=== PATIENT | male | born 1935 | race Caucasian/White ===

== ENCOUNTER 2024-04-02 18:12 | Emergency (ER) | payer MEDICARE ==
--- NOTE | 2024-04-02 18:31 | ERPHSYRPT ---
- History of Present Illness Time Seen by Provider: 04/02/24 18:20 Source: patient Exam Limitations: no limitations Physician History: 88-year-old male presents to our ED with family for evaluation of suspected stroke. Patient reports that he was working with a wrench this morning at 11 AM. 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 Patient then felt his left lower extremity to be unstable. Patient told his daughter. She came to his home and found that he was drooling from the left side of his mouth. No trauma no fever. No history of strokes. Patient on aspirin otherwise no blood thinners. Symptoms are mild to moderate in intensity. No specific worsening or improving factors. Patient otherwise well. They voiced no other complaints or concerns at this time. Portions of this note were created with voice recognition technology. There may be grammatical, spelling, punctuation or sound alike errors Timing/Duration: today Severity: moderate Modifying Factors: Improves With: nothing Associated Symptoms: denies symptoms Allergies/Adverse Reactions: No Known Drug Allergies Allergy (Verified 04/02/24 18:20) Home Medications: Aspirin EC 81 mg [Ecotrin 81 mg] 81 mg PO DAILY@0700 06/27/19 [History] Metoprolol Tartrate 25 mg PO BID@0700,1900 06/27/19 [History] Pravastatin Sodium 40 mg PO DAILY@189906/27/19 [History] Levothyroxine Sodium 125 mcg PO DAILY 04/02/24 [History] Lisinopril 5 mg [Zestril 5 MG] 15 mg PO DAILY 04/02/24 [History] Hx Tetanus, Diphtheria Vaccination/Date Given: Yes Hx Influenza Vaccination/Date Given: Yes (2013) Hx Pneumococcal Vaccination/Date Given: No - Review of Systems Constitutional: No Symptoms, No Fever, No Chills Eyes: No Symptoms Ears, Nose, & Throat: No Symptoms Respiratory: No Symptoms, No Cough, No Dyspnea Cardiac: No Symptoms, No Chest Pain, No Edema, No Syncope Abdominal/Gastrointestinal: No Symptoms, No Abdominal Pain, No Nausea, No Vomiting, No Diarrhea Genitourinary Symptoms: No Symptoms, No Dysuria Musculoskeletal: No Symptoms, No Back Pain, No Neck Pain Skin: No Symptoms, No Rash Neurological: No Symptoms, No Dizziness, No Focal Weakness, No Sensory Changes Psychological: No Symptoms Endocrine: No Symptoms Hematologic/Lymphatic: No Symptoms Immunological/Allergic: No Symptoms All Other Systems: Reviewed and Negative - Past Medical History Pertinent Past Medical History: Yes Neurological History: No Pertinent History ENT History: No Pertinent History Cardiac History: Hypertension Endocrine Medical History: Thyroid Cancer - Past Surgical History Past Surgical History: Yes Cardiac: CABG Gastrointestinal: Hernia Repair - Social History Smoking Status: Never smoker Exposure to second hand smoke: No Drug Use: none Patient Lives Alone: No - Nursing Vital Signs Nursing Vital Signs: Initial Vital Signs Temperature 97.4 F 04/02/24 18:15 Pulse Rate 76 04/02/24 18:15 Respiratory Rate 16 04/02/24 18:15 Blood Pressure 183/97 04/02/24 18:15 O2 Sat by Pulse Oximetry 96 04/02/24 18:15 Pain Scale Pain Intensity 0 - Physical Exam General Appearance: no apparent distress, alert Eye Exam: PERRL/EOMI, eyes nml inspection Ears, Nose, Throat Exam: normal ENT inspection, pharynx normal, moist mucous membranes Neck Exam: normal inspection, non-tender, supple, full range of motion Respiratory Exam: normal breath sounds, lungs clear, airway intact, No respiratory distress Cardiovascular Exam: regular rate/rhythm, normal heart sounds, normal peripheral pulses Gastrointestinal/Abdomen Exam: soft, normal bowel sounds, No tenderness, No mass Back Exam: normal inspection, normal range of motion, No CVA tenderness, No vertebral tenderness Extremity Exam: normal inspection, pelvis stable Neurologic Exam: alert, oriented x 3, cooperative, normal mood/affect, sensation nml, No motor deficits Skin Exam: normal color, warm, dry, No rash Lymphatic Exam: No adenopathy SpO2 Interpretation: normal SpO2: 96 O2 Delivery: Room Air - Course Nursing assessment & vital signs reviewed: Yes EKG Interpreted by Me: RATE (80), Sinus Rhythm, NORMAL AXIS, NORMAL INTERVALS, Right Bundle Branch Block - CT Exams Head CT Interpretation: Tele-radiologist Report (Acute parenchymal bleed at the right insula measuring 1.9 x 1.5 x 2.1 cm left maxillary sinus disease) Ordered Tests: Active Orders 24 hr Category Date 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 04/02/24 18:38 Active EKG-ER Only STAT Care 04/02/24 18:37 Active IV Insertion STAT Care 04/02/24 18:37 Active IV Insertion-2nd Peripheral STAT Care 04/02/24 18:58 Active Pulse Oximetry (ED) STAT Care 04/02/24 18:37 Active HEAD WITHOUT CONTRAST [CT] Stat Exams 04/02/24 18:29 Taken CBC W DIFF Stat Lab 04/02/24 18:35 Completed CMP Stat Lab 04/02/24 18:35 Completed TROPONIN Q4H Lab 04/02/24 18:35 Completed TROPONIN Q4H Lab 04/02/24 22:45 Ordered TROPONIN Q4H Lab 04/03/24 02:45 Ordered Medication Summary Generic Name Dose Route Start Last Admin Trade Name Freq PRN Reason Stop Dose Admin Nicardipine HCl 25 mg/ Sodium 250 mls @ 50 mls/hr 04/02/24 19:18 04/02/24 20:47 Chloride IV 05/02/24 19:17 75 ml/hr .Q5H PRN 75 mls/hr HYPERTENSION Titration Protocol Discontinued Medications Generic Name Dose Route Start Last Admin Trade Name Freq PRN Reason Stop Dose Admin Sodium Chloride Confirm 04/02/24 19:15 Sodium Chloride 0.9% 250 Ml Administered 04/02/24 19:16 Dose 250 mls @ ud IV .STK-MED ONE Nicardipine HCl Confirm 04/02/24 19:14 Nicardipine Hcl 25mg/10ml Vial Administered 04/02/24 19:15 Dose 25 mg IV .STK-MED ONE Lab/Rad Data: Laboratory Result Diagrams 04/02/24 18:35 04/02/24 18:35 Laboratory Results 04/02/24 04/02/24 04/02/24 Range/Units 18:35 18:35 18:35 WBC 11.2 H (4.23-9.07) x10^3/uL RBC 3.66 L (4.63-6.08) x10^6/uL Hgb 11.4 L (13.7-17.5) g/dL Hct 34.3 L (40.1-51.0) % MCV 93.7 H (79.0-92.2) fL MCH 31.1 (25.7-32.2) pg MCHC 33.2 (32.3-36.5) g/dL RDW 13.5 (11.6-14.4) % Plt Count 158 L (163-337) x10^3/uL MPV 10.6 (9.4-12.4) fL Gran % 85.2 H (34.0-67.9) % Immature Gran % (Auto) 0.4 (0.001-0.429) % Nucleat RBC Rel Count 0.0 (0.00-0.2) % Eos # (Auto) 0.01 L (0.04-0.54) x10^3/uL Immature Gran # (Auto) 0.05 H (0.001-0.031) x10^3u/L Absolute Lymphs (auto) 0.95 L (1.32-3.57) x10^3/uL Absolute Monos (auto) 0.60 (0.30-0.82) x10^3/uL Absolute Nucleated RBC 0.00 (0.00-0.012) x10^3u/L Lymphocytes % 8.5 L (21.8-53.1) % Monocytes % 5.4 (5.3-12.2) % Eosinophils % 0.1 L (0.8-7.0) % Basophils % 0.4 (0.2-1.2) % Absolute Granulocytes 9.52 H (1.78-5.38) x10^3/uL Basophils # 0.04 (0.01-0.08) x10^3/uL Sodium 139 (135-145) mmol/L Potassium 4.3 (3.5-5.1) mmol/L Chloride 105 (98-107) mmol/L Carbon Dioxide 24 (22-30) mmol/L Anion Gap 14.7 (5-15) MEQ/L BUN 27 H (9-20) mg/dL Creatinine 1.57 H (0.66-1.25) mg/dL Estimated GFR 42.4 ML/MIN Glucose 129 H (74-106) mg/dL Calcium 9.8 (8.4-10.2) mg/dL Total Bilirubin 0.50 (0.2-1.3) mg/dL AST 28 (17-59) U/L ALT 24 (0-50) U/L Alkaline Phosphatase 88 (38-126) U/L Troponin I < 0.012 (0.000-0.033) ng/mL Serum Total Protein 7.4 (6.3-8.2) g/dL Albumin 4.5 (3.5-5.0) g/dL - Progress Progress: improved Progress Note: Case discussed with Dr. Bañuelos neurosurgery at 1936. 88-year-old male presents to our ED for evaluation of left upper and lower extremity weakness that appears to have improved. Physical exam essentially nonremarkable. Patient conversant well-appearing and in no distress. CT head reveals a intracerebral hemorrhage particularly at the right insula. Bleed measures 1.9 x 1.5 x 2.1 cm. Patient reassessed he is stable. Patient is conversant well-appearing and in no acute distress. Laboratory workup shows ch ronic renal insufficiency. Patient and family updated on the findings. They requested transfer to [facility]. We contacted [facility]. They do not have neurosurgery available. Family agreeable to transfer to ED [facility]. Transfer accepted by neurosurgery. Patient currently on a nicardipine drip. We are titrating the drip according to protocol. Target blood pressure is 130-140 systolic. We are currently arranging transport via rotary wing aircraft. Family aware and agree. Patient resting comfortably. He voices no other complaints or concerns at this time. Portions of this note were created with voice recognition technology. There may be grammatical, spelling, punctuation or sound alike errors Complexity of problem addressed is moderate acute complicated. Critical care time is greater than 194 minutes. Patient has an intra parenchymal brain bleed. Patient currently on a nicardipine drip to decrease blood pressure to goal blood pressure. We are currently titrating per protocol. Patient is being monitored closely. Immediate intervention indicated to prevent further deterioration. Complexity of data reviewed and analyzed is extensive. Test ordered chest reviewed results analyzed and correlated clinically with history and physical exam. Risk of complication and or risk of morbidity/mortality of patient management is high. Patient requires transfer to higher level of care. Vital stable. Time spent to transfer patient is approximately 20 minutes. Plan of care established for shared decision making. No social determinants of health present to impede follow-up. Portions of this note were created with voice recognition technology. There may be grammatical, spelling, punctuation or sound alike errors 04/02/24 19:43 04/02/24 19:53 Counseled pt/family regarding: lab results, diagnosis, rad results - Departure Departure Disposition: Transfer Clinical Impression: Intracerebral hemorrhage, Chronic renal insufficiency, Left maxillary sinus disease Condition: Stable Critical Care Time: Yes Critical Care Time(excluding separately billable procedures): Critical > 194 mins Referrals: TONY WELSH MD [Primary Care Provider] - Follow up/PCP as directed
[2024-04-02 18:32] VITALS: TEMP 97.4
[2024-04-02 18:42] LABS: Absolute Neutrophil Ct (ANC) 9.52 x10^3/uL (1.78-5.38); BASOPHIL % 0.4 % (0.2-1.2); Basophil (Absolute #) 0.04 x10^3/uL (0.01-0.08); Eosinophil % 0.1 % (0.8-7.0); Eosinophil (Absolute #) 0.01 x10^3/uL (0.04-0.54); Hematocrit 34.3 % (40.1-51.0); Hemoglobin 11.4 g/dL (13.7-17.5); IMMATURE GRAN # 0.05 x10^3u/L (0.001-0.031); IMMATURE GRAN % 0.4 % (0.001-0.429); Lymphocyte (Absolute #) 0.95 x10^3/uL (1.32-3.57); Lymphocytes % 8.5 % (21.8-53.1); Mean Cell Volume 93.7 fL (79.0-92.2); Mean Corpuscular Hemoglobin 31.1 pg (25.7-32.2); Mean Corpuscular Hgb Concent. 33.2 g/dL (32.3-36.5); Mean Platelet Volume 10.6 fL (9.4-12.4); Monocytes % 5.4 % (5.3-12.2); Neutrophil % 85.2 % (34.0-67.9); Platelet Count 158 x10^3/uL (163-337); Red Blood Count 3.66 x10^6/uL (4.63-6.08); Red Cell Distribution Width 13.5 % (11.6-14.4); White Blood Count 11.2 x10^3/uL (4.23-9.07)
[2024-04-02 18:58] LABS: ALBUMIN 4.5 g/dL (3.5-5.0); ANION GAP 14.7 MEQ/L (5-15); BILIRUBIN,TOTAL 0.5 mg/dL (0.2-1.3); Calcium 9.8 mg/dL (8.4-10.2); Creatinine 1 1.57 mg/dL (0.66-1.25); EST GLOMERULAR FILTRATION RATE 42.4 ML/MIN; Potassium 4.3 mmol/L (3.5-5.1); Total Protein 7.4 g/dL (6.3-8.2)
[2024-04-02] MEDS ORDERED: CARDENE IV ONE (19:14)
[2024-04-02] MEDS ORDERED: Sodium Chloride 0.9% 250 ML 250 ML IV ONE (19:15)
[2024-04-02] MEDS: CARDENE*** 25 MG in Sodium Chloride 0.9% 250 ML 240 ML IV PRN (19:23)
[2024-04-02 21:07] VITALS: O2SAT 96
[2024-04-02 21:37] VITALS: BP 136/73; PULSE 80; RESP 16
--- NOTE | 2024-04-03 08:37 | XRAY ---
Indication: Left leg weakness. Multiple contiguous axial images obtained through the head without contrast. Comparison: None Age-appropriate global atrophy and mild periventricular degenerative micro-ischemia bilaterally. Right insula demonstrates 1.9 x 1.5 x 2.1 cm focus of acute parenchymal hemorrhage. No mass effect or midline shifting. Fourth ventricle is midline without hydrocephalus. Bony calvarium intact. Near complete opacification left maxillary sinus with mild mucosal thickening left frontal/left ethmoid sinuses. Mastoid air cells are clear. Impression: 1. Small focus acute parenchymal hemorrhage right insula without mass effect/midline shifting. 2. Atrophy and degenerative micro-ischemia within normal limits. 3. Incidental paranasal sinus disease. Comment: Telephone report was given to ordering clinician Dr. Parks at 1912 hrs. on April 02, 2024.
== END 2024-04-02 21:30 | disposition short-term general hospital (02) ==
LOC: ED 18:12
DX: I61.9 Nontraumatic intracerebral hemorrhage, unspecified (principal); I12.9 Hypertensive chronic kidney disease with stage 1 through stage 4 chronic kidney disease, or unspecified chronic kidney disease; N18.9 Chronic kidney disease, unspecified; J32.0 Chronic maxillary sinusitis; Z79.899 Other long term (current) drug therapy
CPT/HCPCS: 36415; 70450; 80053; 84484; 85025; 93005; 93041; 94760; 96365; 96366; 99285; 99291; 99292

== ENCOUNTER 2024-04-09 07:43 | Inpatient (IN) | payer MEDICARE ==
[2024-04-09] MEDS: Sodium Chloride 0.9% 1000 ML 1,000 ML IV SCH (08:10)
[2024-04-09 08:21] LABS: Absolute Neutrophil Ct (ANC) 9.72 x10^3/uL (1.78-5.38); BASOPHIL % 0.3 % (0.2-1.2); Basophil (Absolute #) 0.03 x10^3/uL (0.01-0.08); Eosinophil % 0.4 % (0.8-7.0); Eosinophil (Absolute #) 0.04 x10^3/uL (0.04-0.54); Hematocrit 32.7 % (40.1-51.0); Hemoglobin 10.7 g/dL (13.7-17.5); IMMATURE GRAN # 0.03 x10^3u/L (0.001-0.031); IMMATURE GRAN % 0.3 % (0.001-0.429); Lymphocyte (Absolute #) 0.28 x10^3/uL (1.32-3.57); Lymphocytes % 2.8 % (21.8-53.1); Mean Cell Volume 95.9 fL (79.0-92.2); Mean Corpuscular Hemoglobin 31.4 pg (25.7-32.2); Mean Corpuscular Hgb Concent. 32.7 g/dL (32.3-36.5); Mean Platelet Volume 10.3 fL (9.4-12.4); Monocyte (Absolute #) 0.08 x10^3/uL (0.30-0.82); Monocytes % 0.8 % (5.3-12.2); Neutrophil % 95.4 % (34.0-67.9); Platelet Count 135 x10^3/uL (163-337); Red Blood Count 3.41 x10^6/uL (4.63-6.08); Red Cell Distribution Width 13.4 % (11.6-14.4); White Blood Count 10.2 x10^3/uL (4.23-9.07)
[2024-04-09] MEDS: OFIRMEV IV ONE (08:23)
--- NOTE | 2024-04-09 08:27 | XRAY ---
CLINICAL HISTORY: shaking COMPARISON: 04/02/24 TECHNIQUE: Axial non-contrast CT scan of the brain was performed from the skull base to the high parietal region. One of the following dose reduction techniques were utilized for this exam: Automated exposure control, adjustment of the mA and/or kV according to patient size, use of iterative reconstruction. FINDINGS: Brain Parenchyma: There is redemonstration of right insular region hemorrhage showing no interval change in size and morphology. It is measuring 2.0 x 1.4 cm.Mild adjacent perilesional edema seen. No significant midline shift was noted Age-proportionate global atrophy and microvascular ischemic changes are noted Normal attenuation of the cerebral hemispheres, cerebellum, and brainstem. Ventricular System: No evidence of hydrocephalus or ventricular enlargement. Subarachnoid Spaces: Normal sulci and cisterns. No evidence of subarachnoid hemorrhage or extra-axial fluid collections. Cerebellum and Brainstem: Normal size and signal. No masses, lesions, or areas of abnormal signal. Orbits: Normal appearance of the globes, optic nerves, and extraocular muscles. No evidence of orbital masses or abnormal signal. Sinuses: Redemonstration of complete opacification of the left maxillary sinus with internal hyperdensity Mild mucosal thickening also noted in left frontal and right maxillary and bilateral ethmoid sinuses Mastoid Air Cells: Clear mastoid air cells. No evidence of mastoiditis. Skull and Meninges: Normal skull morphology. IMPRESSION: Redemonstration of right insular region hemorrhage showing no interval change in size and morphology. Mild adjacent perilesional edema seen without midline shift. Follow-up is advised. No interval change since prior study, Electronically Signed by: Leighton Love MD. (04/09/2024 08:23:24 EST)
--- NOTE | 2024-04-09 08:49 | ERPHSYRPT ---
- History of Present Illness Time Seen by Provider: 04/09/24 08:44 Source: patient Exam Limitations: no limitations Patient Subjective Stated Complaint: pt co shakes today and generally not feeling well, pt was recently dx with head bleed and spent 5 days in hospital at [facility] Triage Nursing Assessment: pt arrived per ems, alert and oriented, closes eyses often. skin hot to touch, dry and pink. no cough, chest clear, abd soft, nontender, has yellow bruising to upper arms and shoulders, moves all ext well, no edema noted Physician History: 88-year-old male presents to our ED via EMS for evaluation of subjective fever, rigor generalized weakness. Patient was in our ED approximately 5 days ago. Patient was diagnosed with a right insular hemorrhagic stroke. Patient was transferred to [facility] for further evaluation and treatment. Patient was discharged yesterday. Patient reports that his symptoms started several days ago. Symptoms have gotten worse. Per family patient was monitored. No invasive procedures were done. However patient did have a Whiting catheter in place. Patient denies pain. No chest pain or shortness of breath. No nausea vomiting or diaphoresis. No hematuria or dysuria. Patient observed lying in bed. Eyes closed. Patient has no active complaints. Portions of this note were created with voice recognition technology. There may be grammatical, spelling, punctuation or sound alike errors Timing/Duration: day(s) (2 to 3 days ago) Severity: moderate Modifying Factors: Improves With: nothing Associated Symptoms: denies symptoms Allergies/Adverse Reactions: No Known Drug Allergies Allergy (Verified 04/09/24 07:52) Home Medications: Aspirin EC 81 mg [Ecotrin 81 mg] 81 mg PO DAILY@0700 06/27/19 [History] Metoprolol Tartrate 25 mg PO BID@0700,1900 06/27/19 [History] Pravastatin Sodium 40 mg PO DAILY@1900 06/27/19 [History] Levothyroxine Sodium 125 mcg PO DAILY 04/02/24 [History] Lisinopril 5 mg [Zestril 5 MG] 15 mg PO DAILY 04/02/24 [History] Hx Tetanus, Diphtheria Vaccination/Date Given: Yes Hx Influenza Vaccination/Date Given: Yes (2013) Hx Pneumococcal Vaccination/Date Given: No Immunizations Up to Date: Yes Travel Risk - International Travel Have you traveled outside of the country in past 3 weeks: No - Emerging Infectious Disease Are you exhibiting symptoms associated with any current EIDs: No - Review of Systems Constitutional: No Symptoms, No Fever, No Chills Eyes: No Symptoms Ears, Nose, & Throat: No Symptoms Respiratory: No Symptoms, No Cough, No Dyspnea Cardiac: No Symptoms, No Chest Pain, No Edema, No Syncope Abdominal/Gastrointestinal: No Symptoms, No Abdominal Pain, No Nausea, No Vomiting, No Diarrhea Genitourinary Symptoms: No Symptoms, No Dysuria Musculoskeletal: No Symptoms, No Back Pain, No Neck Pain Skin: No Symptoms, No Rash Neurological: No Symptoms, No Dizziness, No Focal Weakness, No Sensory Changes Psychological: No Symptoms Endocrine: No Symptoms Hematologic/Lymphatic: No Symptoms Immunological/Allergic: No Symptoms All Other Systems: Reviewed and Negative - Past Medical History Pertinent Past Medical History: Yes Neurological History: No Pertinent History ENT History: No Pertinent History Cardiac History: Hypertension Endocrine Medical History: Thyroid Cancer Other Medical History: head bleed 03/2024 - Past Surgical History Past Surgical History: Yes Cardiac: CABG Gastrointestinal: Hernia Repair - Social History Smoking Status: Never smoker Exposure to second hand smoke: No Drug Use: none Patient Lives Alone: No - Social Determinants of Health Will the patient participate in the screening: Declined to provide - Nursing Vital Signs Nursing Vital Signs: Initial Vital Signs O2 Sat by Pulse Oximetry 87 L 04/09/24 07:55 Pain Scale Pain Intensity 3 - Physical Exam General Appearance: no apparent distress, alert Eye Exam: PERRL/EOMI, eyes nml inspection Ears, Nose, Throat Exam: normal ENT inspection, TMs normal, pharynx normal, mo ist mucous membranes Neck Exam: normal inspection, non-tender, supple, full range of motion Respiratory Exam: normal breath sounds, lungs clear, No respiratory distress Cardiovascular Exam: regular rate/rhythm, normal heart sounds, normal peripheral pulses Gastrointestinal/Abdomen Exam: soft, normal bowel sounds, No tenderness, No mass Back Exam: normal inspection, normal range of motion, No CVA tenderness, No vertebral tenderness Extremity Exam: normal inspection, normal range of motion, pelvis stable Neurologic Exam: alert, oriented x 3, cooperative, normal mood/affect, sensation nml, No motor deficits Skin Exam: normal color, warm, dry, No rash Lymphatic Exam: No adenopathy SpO2 Interpretation: normal SpO2: 88 O2 Delivery: Room Air - Course Nursing assessment & vital signs reviewed: Yes EKG Interpreted by Me: RATE (95), Sinus Rhythm, LAFB, NORMAL INTERVALS, NORMAL QRS (Nonspecific T wave abnormalities) - Radiology Exams Chest X-ray Interpretation: Teleradiologist Report (No acute findings) - CT Exams Head CT Interpretation: Tele-radiologist Report (No interval change of insular bleed) Ordered Tests: Active Orders 24 hr Category Date Time Status Ui Architect STAT Care 04/09/24 07:49 Active EKG-ER Only STAT Care 04/09/24 07:47 Active IV Insertion STAT Care 04/09/24 07:47 Active Pulse Oximetry (ED) STAT Care 04/09/24 07:47 Active CHEST 1 VIEW (PORTABLE) Stat Exams 04/09/24 09:30 Completed HEAD WITHOUT CONTRAST [CT] Stat Exams 04/09/24 07:45 Completed BLOOD CULTURE Stat Lab 04/09/24 08:16 Received CBC W DIFF Stat Lab 04/09/24 08:09 Completed CMP Stat Lab 04/09/24 08:09 Completed CULTURE,URINE Stat Lab 04/09/24 09:19 Received Lactic Acid Stat Lab 04/09/24 08:15 Completed MAGNESIUM Stat Lab 04/09/24 08:09 Completed NT PRO BNPII Stat Lab 04/09/24 08:09 Completed TSH, 3RD Generation Stat Lab 04/09/24 08:09 Completed UA W/RFX UR CULTURE Stat Lab 04/09/24 09:19 Completed Transfer Order Routine Transfer 04/09/24 Ordered Medication Summary Generic Name Dose Route Start Last Admin Trade Name Freq PRN Reason Stop Dose Admin Sodium Chloride 1,000 mls @ 100 mls/hr 04/09/24 08:15 04/09/24 08:10 Sodium Chloride 0.9% 1000 Ml IV 05/09/24 08:14 100 mls/hr .Q10H JASON Administration Levofloxacin/Dextrose 500 mg in 100 mls @ 100 mls/hr 04/09/24 10:22 04/09/24 10:25 Levofloxacin 500mg/100ml D5w IV 04/09/24 11:21 100 mls/hr STAT STA 100 mls/hr Administration Discontinued Medications Generic Name Dose Route Start Last Admin Trade Name Freq PRN Reason Stop Dose Admin Acetaminophen 1,000 mg 04/09/24 08:30 04/09/24 08:23 Acetaminophen 1,000 Mg/100 Ml Ml IV 04/09/24 08:31 1,000 mg ONCE ONE Administration Levofloxacin/Dextrose Confirm 04/09/24 10:24 Levofloxacin 500mg/100ml D5w Administered 04/09/24 10:25 Dose 500 mg in 100 mls @ ud IV .STK-MED ONE Lab/Rad Data: Laboratory Result Diagrams 04/09/24 08:09 04/09/24 08:09 Laboratory Results 04/09/24 04/09/24 04/09/24 Range/Units 09:19 08:33 08:15 WBC (4.23-9.07) x10^3/uL RBC (4.63-6.08) x10^6/uL Hgb (13.7-17.5) g/dL Hct (40.1-51.0) % MCV (79.0-92.2) fL MCH (25.7-32.2) pg MCHC (32.3-36.5) g/dL RDW (11.6-14.4) % Plt Count (163-337) x10^3/uL MPV (9.4-12.4) fL Gran % (34.0-67.9) % Immature Gran % (Auto) (0.001-0.429) % Nucleat RBC Rel Count (0.00-0.2) % Eos # (Auto) (0.04-0.54) x10^3/uL Immature Gran # (Auto) (0.001-0.031) x10^3u/L Absolute Lymphs (auto) (1.32-3.57) x10^3/uL Absolute Monos (auto) (0.30-0.82) x10^3/uL Absolute Nucleated RBC (0.00-0.012) x10^3u/L Lymphocytes % (21.8-53.1) % Monocytes % (5.3-12.2) % Eosinophils % (0.8-7.0) % Basophils % (0.2-1.2) % Absolute Granulocytes (1.78-5.38) x10^3/uL Basophils # (0.01-0.08) x10^3/uL Sodium (135-145) mmol/L Potassium (3.5-5.1) mmol/L Chloride (98-107) mmol/L Carbon Dioxide (22-30) mmol/L Anion Gap (5-15) MEQ/L BUN (9-20) mg/dL Creatinine (0.66-1.25) mg/dL Estimated GFR ML/MIN Glucose (74-106) mg/dL Lactic Acid 1.5 (0.4-2.0) Calcium (8.4-10.2) mg/dL Magnesium (1.6-2.3) mg/dL Total Bilirubin (0.2-1.3) mg/dL AST (17-59) U/L ALT (0-50) U/L Alkaline Phosphatase (38-126) U/L NT-Pro-B Natriuret Pep (<300) pg/mL Serum Total Protein (6.3-8.2) g/dL Albumin (3.5-5.0) g/dL TSH 3rd Generation (0.470-4.680) mIU/L Urine Color Annabella A (Yellow) Urine Appearance Cloudy A (Clear) Urine pH 6.0 (4.6-8.0) Ur Specific Lawrence 1.015 (1.005-1.030) Urine Protein 100 A (Negative) Urine Glucose (UA) Negative (Negative) mg/dL Urine Ketones Negative (Negative) Urine Blood Large A (Negative) Urine Nitrite Negative (Negative) Urine Bilirubin Negative (Negative) Urine Urobilinogen 1.0 A (0.2) mg/dL Ur Leukocyte Esterase Small A (Negative) U Hyaline Cast (Auto) NONE SEEN (0-2) /LPF Urine Microscopic RBC >100 A (0-5) /HPF Urine Microscopic WBC 11-20 A (0-5) /HPF Ur Epithelial Cells None Seen (None Seen) /HPF Urine Bacteria Moderate A (None Seen) /HPF Urine Culture Reflexed ORDERED SEPARATELY (NO) Influenza Type A Ag NEGATIVE (NEGATIVE) Influenza Type B Ag NEGATIVE (NEGATIVE) RSV (PCR) NEGATIVE (NEGATIVE) SARS-CoV-2 (PCR) NEGATIVE (NEGATIVE) 04/09/24 04/09/24 Range/Units 08:09 08:09 WBC 10.2 H (4.23-9.07) x10^3/uL RBC 3.41 L (4.63-6.08) x10^6/uL Hgb 10.7 L (13.7-17.5) g/dL Hct 32.7 L (40.1-51.0) % MCV 95.9 H (79.0-92.2) fL MCH 31.4 (25.7-32.2) pg MCHC 32.7 (32.3-36.5) g/dL RDW 13.4 (11.6-14.4) % Plt Count 135 L (163-337) x10^3/uL MPV 10.3 (9.4-12.4) fL Gran % 95.4 H (34.0-67.9) % Immature Gran % (Auto) 0.3 (0.001-0.429) % Nucleat RBC Rel Count 0.0 (0.00-0.2) % Eos # (Auto) 0.04 (0.04-0.54) x10^3/uL Immature Gran # (Auto) 0.03 (0.001-0.031) x10^3u/L Absolute Lymphs (auto) 0.28 L (1.32-3.57) x10^3/uL Absolute Monos (auto) 0.08 L (0.30-0.82) x10^3/uL Absolute Nucleated RBC 0.00 (0.00-0.012) x10^3u/L Lymphocytes % 2.8 L (21.8-53.1) % Monocytes % 0.8 L (5.3-12.2) % Eosinophils % 0.4 L (0.8-7.0) % Basophils % 0.3 (0.2-1.2) % Absolute Granulocytes 9.72 H (1.78-5.38) x10^3/uL Basophils # 0.03 (0.01-0.08) x10^3/uL Sodium 140 (135-145) mmol/L Potassium 4.1 (3.5-5.1) mmol/L Chloride 109 H (98-107) mmol/L Carbon Dioxide 25 (22-30) mmol/L Anion Gap 10.7 (5-15) MEQ/L BUN 42 H (9-20) mg/dL Creatinine 1.37 H (0.66-1.25) mg/dL Estimated GFR 49.9 ML/MIN Glucose 111 H (74-106) mg/dL Lactic Acid (0.4-2.0) Calcium 9.6 (8.4-10.2) mg/dL Magnesium 1.5 L (1.6-2.3) mg/dL Total Bilirubin 0.80 (0.2-1.3) mg/dL AST 29 (17-59) U/L ALT 27 (0-50) U/L Alkaline Phosphatase 65 (38-126) U/L NT-Pro-B Natriuret Pep 470 (<300) pg/mL Serum Total Protein 6.8 (6.3-8.2) g/dL Albumin 3.9 (3.5-5.0) g/dL TSH 3rd Generation 1.498 (0.470-4.680) mIU/L Urine Color (Yellow) Urine Appearance (Clear) Urine pH (4.6-8.0) Ur Specific Lawrence (1.005-1.030) Urine Protein (Negative) Urine Glucose (UA) (Negative) mg/dL Urine Ketones (Negative) Urine Blood (Negative) Urine Nitrite (Negative) Urine Bilirubin (Negative) Urine Urobilinogen (0.2) mg/dL Ur Leukocyte Esterase (Negative) U Hyaline Cast (Auto) (0-2) /LPF Urine Microscopic RBC (0-5) /HPF Urine Microscopic WBC (0-5) /HPF Ur Epithelial Cells (None Seen) /HPF Urine Bacteria (None Seen) /HPF Urine Culture Reflexed (NO) Influenza Type A Ag (NEGATIVE) Influenza Type B Ag (NEGATIVE) RSV (PCR) (NEGATIVE) SARS-CoV-2 (PCR) (NEGATIVE) - Progress Progress: improved Progress Note: 88-year-old male presents to our ED for evaluation of subjective fever and rigor. Patient febrile 104 upon arrival. Patient observed to have urinary tract infection. No obvious pneumonia on chest x-ray. Laboratory workup essentially nonremarkable. Chronic renal insufficiency observed. Antibiotics initiated. Patient has a known right insular hemorrhagic stroke diagnosed approximately 1 week ago. Patient is stable from this regard as per CT scan completed today. Plan of care discussed with patient. He agrees to admission to [facility] for further evaluation and treatment. Portions of this note were created with voice recognition technology. There may be grammatical, spelling, punctuation or sound alike errors Complexity of problem addressed is moderate acute complicated no critical care time complex of data reviewed and analyzed is extensive. Test ordered chest reviewed results analyzed and correlated clinically with history and physical exam. Management discussed with hospitalist who excepts admission to observation. Risk of complication and or risk of morbidity/mortality of patient management is high. Patient requires hospitalization for further evaluation and treatment. Vital stable. Time spent to admit patient approximately 15 minutes. Plan of care established for shared decision making. No social determinants of health present to impede follow-up. Portions of this note were created with voice recognition technology. There may be grammatical, spelling, punctuation or sound alike errors 04/09/24 10:45 Counseled pt/family regarding: lab results, diagnosis, rad results - Departure Departure Disposition: Observation Clinical Impression: Hypoxia, Fever, UTI (urinary tract infection) Condition: Stable Critical Care Time: No Referrals: TONY WELSH MD [Primary Care Provider] - Follow up/PCP as directed
[2024-04-09 09:06] LABS: ALBUMIN 3.9 g/dL (3.5-5.0); ANION GAP 10.7 MEQ/L (5-15); BILIRUBIN,TOTAL 0.8 mg/dL (0.2-1.3); Calcium 9.6 mg/dL (8.4-10.2); Creatinine 1 1.37 mg/dL (0.66-1.25); EST GLOMERULAR FILTRATION RATE 49.9 ML/MIN; MAGNESIUM 1.5 mg/dL (1.6-2.3); Potassium 4.1 mmol/L (3.5-5.1); TSH, 3RD Generation 1.498 mIU/L (0.470-4.680); Total Protein 6.8 g/dL (6.3-8.2)
[2024-04-09 09:35] LABS: Appearance Cloudy (Clear); Bacteria Moderate /HPF (None Seen); Bilirubin Negative (Negative); Blood Large (Negative); Epithelial Cells None Seen /HPF (None Seen); Glucose, Urine Negative (Negative); Hyaline Casts NONE SEEN /LPF (0-2); Ketones Negative (Negative); Leukocyte Esterase Small (Negative); Nitrite Negative (Negative); Protein,Urine Dip 100 (Negative); RBC >100 /HPF (0-5); Specific Gravity 1.015 (1.005-1.030)
[2024-04-09 10:05] LABS: INFLUENZA A NEGATIVE (NEGATIVE); INFLUENZA B NEGATIVE (NEGATIVE); RESPIRATORY SYNCTIAL VIRUS NEGATIVE (NEGATIVE); SARS-CoV-2 Xpert Express NEGATIVE (NEGATIVE)
[2024-04-09] MEDS ORDERED: Levofloxacin 500MG/100ML D5W 500 MG/100 ML BAG IV ONE (10:24)
--- NOTE | 2024-04-09 10:24 | XRAY ---
CLINICAL HISTORY: sob COMPARISON: 10/23/2019 prior TECHNIQUE: X-ray chest obtained in AP projection single view. FINDINGS: Patient rotation seen Slightly increased broncho vascular markings noted in the suprahilar regions, more on the left side could suggest early congestive or bronchitic changes, showing interval improvement since prior. Previously seen right paratracheal opacity appreciated again, stable. No collapse consolidation seen. No lung nodules or mass seen. No right-sided pleural effusion seen Loss of the normal sharpness of the left costophrenic angle seen which appears slightly hazy and blunted, could be due to mild to minimal pleural effusion or pleural thickening, this shows a significant reduction since prior. Median sternotomy sutures in situ, appear well aligned, stable. Few surgical nicole seen superimposed over the cardiac shadow. No obvious cardiomegaly seen despite the AP projection. Slightly prominent left hilar shadow likely due to patient position. Right hilum shows few vascular end-ons. Surgical nicole are suggested at the thoracic inlet, other possibilities would be cartilage calcification, stable since prior. Soft tissues appear unremarkable. IMPRESSION: 1. Slightly increased broncho vascular markings noted in the suprahilar regions, more on the left side, could suggest early congestive or bronchitic changes, shows interval improvement since piror 2. No collapse consolidation seen. 3. Loss of the normal sharpness of the left costophrenic angle, likely mild residual pleural effusion or pleural thickening, this shows significant reduction since prior suggesting interval improvement, 4. Previously seen right paratracheal opacity appreciated again, stable. 5. Stable postsurgical changes. 6. No pneumothorax seen. 7. Clinical and lab correlation advised. [facility] ER was called at [phone] at 9:16 AM [employer], 04/09/2024 and Debra (Nurse) was informed regaridng the presence of important medical findings in the report. Electronically Signed by: Leighton Love MD. (04/09/2024 10:20:26 EST)
[2024-04-09] MEDS: Levofloxacin 500MG/100ML D5W 500 MG/100 ML BAG IV STA (10:25)
--- NOTE | 2024-04-09 11:58 | PCM.HP ---
History of Present Illness - Chief Complaint Chief Complaint: UTI Date: 04/09/24 History of Present Illness: is a 88 year old male with PMHX of HTN. CABG, thyroid cancer, and recent stroke 03/2024 and just release from the hospital yesterday. He presented to our ED via EMS for evaluation of subjective fever, rigor, generalized weakness and hematuria. Patient was in our ED approximately 5 days ago. Patient was diagnosed with a right insular hemorrhagic stroke. Patient was transferred to [facility] for further evaluation and treatment. Patient was discharged yesterday. He reports only having residual left finger tip numbness. Patient reports new sxs started yesterday. Patient reports he did have an in and out cath done twice while in [facility] for urinary retention. He did not go home with a cath and has been able to urinate fine except for hematuria. He states this has improved this AM but does have some associated dysuria. He denies CP, SOB, Abd. pain, N/V/D. 2LNC placed on pt for comfort in ER. Pt does not wear oxygen at home. - Review of Systems Constitutional: Fever, Chills Eyes: No Symptoms Ears, Nose, & Throat: No Symptoms Respiratory: No Cough, No Short Of Breath Cardiac: No Chest Pain, No Edema, No Syncope Abdominal/Gastrointestinal: No Abdominal Pain, No Nausea, No Vomiting, No Diarrhea Genitourinary Symptoms: Dysuria, Hematuria Musculoskeletal: No Back Pain, No Neck Pain Skin: No Rash Neurological: Parasthesia (numbness of all tips of fingers of Left hand post CVA), No Dizziness, No Focal Weakness, No Sensory Changes Psychological: No Symptoms Endocrine: No Symptoms Hematologic/Lymphatic: No Symptoms Immunological/Allergic: No Symptoms Medications & Allergies Home Medications: Home Medication List Aspirin EC 81 mg [Ecotrin 81 mg] 81 mg PO DAILY@0700 06/27/19 [History Confirmed 04/02/24] Metoprolol Tartrate 25 mg PO BID@0700,1900 06/27/19 [History Confirmed 04/02/24] Pravastatin Sodium 40 mg PO DAILY@1900 06/27/19 [History Confirmed 04/02/24] Levothyroxine Sodium 125 mcg PO DAILY 04/02/24 [History Confirmed 04/02/24] Lisinopril 5 mg [Zestril 5 MG] 15 mg PO DAILY 04/02/24 [History Confirmed 04/02/24] Allergies/Adverse Reactions: Allergies Allergy/AdvReac Type Severity Reaction Status Date / Time No Known Drug Allergies Allergy Verified 04/09/24 07:52 - Past Medical History Past Medical History: Yes Neurological History: No Pertinent History ENT History: No Pertinent History Cardiac History: Hypertension Endocrine Medical History: Thyroid Cancer Comment: head bleed 03/2024 - Past Surgical History Past Surgical History: Yes Cardiac History: CABG GI Surgical History: Hernia Repair - Social History Smoking Status: Never smoker Exposure to second hand smoke: No Alcohol: None Drug Use: none - Social Determinants of Health Will the patient participate in the screening: Declined to provide - Physical Exam Vital Signs: Vital Signs - 24 hr Temp Pulse Resp BP Pulse Ox 04/09/24 11:30 70 18 114/67 99 04/09/24 11:01 88 L 04/09/24 11:00 78 17 139/70 99 04/09/24 10:47 99.9 F 04/09/24 10:30 84 19 112/64 98 04/09/24 10:00 80 10 L 119/64 99 04/09/24 09:30 80 15 112/67 98 04/09/24 09:00 80 18 118/65 95 04/09/24 08:30 82 17 119/63 93 L 04/09/24 08:11 104.5 F 04/09/24 08:10 88 L 04/09/24 08:00 91 H 25 H 100/70 91 L 04/09/24 07:56 96 H 25 H 130/70 94 L 04/09/24 07:55 87 L General Appearance: no apparent distress, alert Neurologic Exam: alert, oriented x 3, cooperative, fur clipper II-XII nml as tested, normal mood/affect, nml cerebellar function, nml station & gait, sensation nml, No motor deficits Eye Exam: PERRL/EOMI, eyes nml inspection Ears, Nose, Throat Exam: normal ENT inspection, TMs normal, pharynx normal, moist mucous membranes Neck Exam: normal inspection, non-tender, supple, full range of motion Respiratory Exam: normal breath sounds, lungs clear, No respiratory distress Cardiovascular Exam: regular rate/rhythm, normal heart sounds, normal peripheral pulses Gastrointestinal/Abdomen Exam: soft, normal bowel sounds, No tenderness, No mass Back Exam: normal inspection, normal range of motion, No CVA tenderness, No vertebral tenderness Extremity Exam: normal inspection, normal range of motion, pelvis stable Skin Exam: normal color, warm, dry, No rash Lymphatic Exam: No adenopathy Results - Labs Lab/Micro Results: Lab Results-Last 24 Hours 04/09/24 04/09/24 04/09/24 Range/Units 08:09 08:09 08:15 WBC 10.2 H (4.23-9.07) x10^3/uL RBC 3.41 L (4.63-6.08) x10^6/uL Hgb 10.7 L (13.7-17.5) g/dL Hct 32.7 L (40.1-51.0) % MCV 95.9 H (79.0-92.2) fL MCH 31.4 (25.7-32.2) pg MCHC 32.7 (32.3-36.5) g/dL RDW 13.4 (11.6-14.4) % Plt Count 135 L (163-337) x10^3/uL MPV 10.3 (9.4-12.4) fL Gran % 95.4 H (34.0-67.9) % Immature Gran % (Auto) 0.3 (0.001-0.429) % Nucleat RBC Rel Count 0.0 (0.00-0.2) % Eos # (Auto) 0.04 (0.04-0.54) x10^3/uL Immature Gran # (Auto) 0.03 (0.001-0.031) x10^3u/L Absolute Lymphs (auto) 0.28 L (1.32-3.57) x10^3/uL Absolute Monos (auto) 0.08 L (0.30-0.82) x10^3/uL Absolute Nucleated RBC 0.00 (0.00-0.012) x10^3u/L Lymphocytes % 2.8 L (21.8-53.1) % Monocytes % 0.8 L (5.3-12.2) % Eosinophils % 0.4 L (0.8-7.0) % Basophils % 0.3 (0.2-1.2) % Absolute Granulocytes 9.72 H (1.78-5.38) x10^3/uL Basophils # 0.03 (0.01-0.08) x10^3/uL Sodium 140 (135-145) mmol/L Potassium 4.1 (3.5-5.1) mmol/L Chloride 109 H (98-107) mmol/L Carbon Dioxide 25 (22-30) mmol/L Anion Gap 10.7 (5-15) MEQ/L BUN 42 H (9-20) mg/dL Creatinine 1.37 H (0.66-1.25) mg/dL Estimated GFR 49.9 ML/MIN Glucose 111 H (74-106) mg/dL Lactic Acid 1.5 (0.4-2.0) Calcium 9.6 (8.4-10.2) mg/dL Magnesium 1.5 L (1.6-2.3) mg/dL Total Bilirubin 0.80 (0.2-1.3) mg/dL AST 29 (17-59) U/L ALT 27 (0-50) U/L Alkaline Phosphatase 65 (38-126) U/L NT-Pro-B Natriuret Pep 470 (<300) pg/mL Serum Total Protein 6.8 (6.3-8.2) g/dL Albumin 3.9 (3.5-5.0) g/dL TSH 3rd Generation 1.498 (0.470-4.680) mIU/L Urine Color (Yellow) Urine Appearance (Clear) Urine pH (4.6-8.0) Ur Specific [place] (1.005-1.030) Urine Protein (Negative) Urine Glucose (UA) (Negative) mg/dL Urine Ketones (Negative) Urine Blood (Negative) Urine Nitrite (Negative) Urine Bilirubin (Negative) Urine Urobilinogen (0.2) mg/dL Ur Leukocyte Esterase (Negative) U Hyaline Cast (Auto) (0-2) /LPF Urine Microscopic RBC (0-5) /HPF Urine Microscopic WBC (0-5) /HPF Ur Epithelial Cells (None Seen) /HPF Urine Bacteria (None Seen) /HPF Urine Culture Reflexed (NO) Influenza Type A Ag (NEGATIVE) Influenza Type B Ag (NEGATIVE) RSV (PCR) (NEGATIVE) SARS-CoV-2 (PCR) (NEGATIVE) 04/09/24 04/09/24 Range/Units 08:33 09:19 WBC (4.23-9.07) x10^3/uL RBC (4.63-6.08) x10^6/uL Hgb (13.7-17.5) g/dL Hct (40.1-51.0) % MCV (79.0-92.2) fL MCH (25.7-32.2) pg MCHC (32.3-36.5) g/dL RDW (11.6-14.4) % Plt Count (163-337) x10^3/uL MPV (9.4-12.4) fL Gran % (34.0-67.9) % Immature Gran % (Auto) (0.001-0.429) % Nucleat RBC Rel Count (0.00-0.2) % Eos # (Auto) (0.04-0.54) x10^3/uL Immature Gran # (Auto) (0.001-0.031) x10^3u/L Absolute Lymphs (auto) (1.32-3.57) x10^3/uL Absolute Monos (auto) (0.30-0.82) x10^3/uL Absolute Nucleated RBC (0.00-0.012) x10^3u/L Lymphocytes % (21.8-53.1) % Monocytes % (5.3-12.2) % Eosinophils % (0.8-7.0) % Basophils % (0.2-1.2) % Absolute Granulocytes (1.78-5.38) x10^3/uL Basophils # (0.01-0.08) x10^3/uL Sodium (135-145) mmol/L Potassium (3.5-5.1) mmol/L Chloride (98-107) mmol/L Carbon Dioxide (22-30) mmol/L Anion Gap (5-15) MEQ/L BUN (9-20) mg/dL Creatinine (0.66-1.25) mg/dL Estimated GFR ML/MIN Glucose (74-106) mg/dL Lactic Acid (0.4-2.0) Calcium (8.4-10.2) mg/dL Magnesium (1.6-2.3) mg/dL Total Bilirubin (0.2-1.3) mg/dL AST (17-59) U/L ALT (0-50) U/L Alkaline Phosphatase (38-126) U/L NT-Pro-B Natriuret Pep (<300) pg/mL Serum Total Protein (6.3-8.2) g/dL Albumin (3.5-5.0) g/dL TSH 3rd Generation (0.470-4.680) mIU/L Urine Color [place] A (Yellow) Urine Appearance Cloudy A (Clear) Urine pH 6.0 (4.6-8.0) Ur Specific [place] 1.015 (1.005-1.030) Urine Protein 100 A (Negative) Urine Glucose (UA) Negative (Negative) mg/dL Urine Ketones Negative (Negative) Urine Blood Large A (Negative) Urine Nitrite Negative (Negative) Urine Bilirubin Negative (Negative) Urine Urobilinogen 1.0 A (0.2) mg/dL Ur Leukocyte Esterase Small A (Negative) U Hyaline Cast (Auto) NONE SEEN (0-2) /LPF Urine Microscopic RBC >100 A (0-5) /HPF Urine Microscopic WBC 11-20 A (0-5) /HPF Ur Epithelial Cells None Seen (None Seen) /HPF Urine Bacteria Moderate A (None Seen) /HPF Urine Culture Reflexed ORDERED SEPARATELY (NO) Influenza Type A Ag NEGATIVE (NEGATIVE) Influenza Type B Ag NEGATIVE (NEGATIVE) RSV (PCR) NEGATIVE (NEGATIVE) SARS-CoV-2 (PCR) NEGATIVE (NEGATIVE) - Radiology Impressions Radiology Exams & Impressions: Radiology Procedures Category Date Time Status CHEST 1 VIEW (PORTABLE) Stat Exams 04/09/24 09:30 Completed HEAD WITHOUT CONTRAST [CT] Stat Exams 04/09/24 07:45 Completed Assessment/Plan (1) Sepsis Current Visit: Yes Status: Acute Assessment & Plan: - Urosepsis - UC and BC x 2 pending - Temp > 100.4 - Resp > 20 - HR > 90 - Lactate 1.5- WNL - IVF gave in ER - IV antibiotic - Tylenol for fever (2) UTI (urinary tract infection) Current Visit: Yes Status: Acute Assessment & Plan: - with hematuria - Levaquin gave in ER- start ceftriaxone tomorrow - UC pending - Pt has some recent urinary retention after CVA in the hospital and was cathed twice. - Pt feels dx is r/t this. - No prior hx of UTI's - Consider USif continued hematuria - CBC, CMP reviewed Code(s): N39.0 - URINARY TRACT INFECTION, SITE NOT SPECIFIED (3) Fever Current Visit: Yes Status: Acute Assessment & Plan: - Temp of 104.5 on admission- improving - trend - UC and BC x2 pending - IV antibiotic- Levaquin gave in ER- will start ceftriaxone IP tomorrow - Tylenol PRN- gave x1 in ER - 2:2 UTI Code(s): R50.9 - FEVER, UNSPECIFIED (4) Hypoxia Current Visit: Yes Status: Acute Assessment & Plan: - CXR reviewed - on 2lNC - 99%- baseline RA - RT wean O2 keep sat > 92% - duonebs Q6 - Lasix IV x1- for residual pleural effusion Left side as seen on CXR - IV fluids stopped Code(s): R09.02 - HYPOXEMIA (5) Chronic renal insufficiency Current Visit: No Status: Chronic Assessment & Plan: - at baseline renal function Code(s): N18.9 - CHRONIC KIDNEY DISEASE, UNSPECIFIED (6) Intracerebral hemorrhage Current Visit: No Status: Chronic Assessment & Plan: - Recent dx with d/c from [facility] yesterday - Finger tips on left hand numb post CVA - CT head today: Redemonstration of right insular region hemorrhage showing no interval change in size and morphology. Mild adjacent perilesional edema seen without midline shift. Follow-up is advised. No interval change since prior study, - Tele- Neurology consulted for further eval of CT head- may need possible MRI for further eval of mild adjacent perilesional edema Code(s): I61.9 - NONTRAUMATIC INTRACEREBRAL HEMORRHAGE, UNSPECIFIED (7) Hypothyroidism Current Visit: Yes Status: Chronic Assessment & Plan: - continue synthroid Code(s): E03.9 - HYPOTHYROIDISM, UNSPECIFIED (8) HTN (hypertension) Current Visit: Yes Status: Chronic Assessment & Plan: - BP stable - Continue home meds VTE: SCD's PPI: Protonix Next of KIN: Daughter Code status: Full D/C plan: 2-3 days Code(s): I10 - ESSENTIAL (PRIMARY) HYPERTENSION
[2024-04-09] MEDS: Flomax 0.4 MG PO SCH (13:36)
[2024-04-09] MEDS: NORVASC 5 MG PO SCH (13:37)
[2024-04-09] MEDS: Protonix 20MG Tablet PO SCH (13:39)
[2024-04-09] MEDS: Coreg PO SCH (13:40)
[2024-04-09] MEDS: ECOTRIN 81 MG PO SCH (13:41)
[2024-04-09] MEDS: DUONEB 0.5-3 MG/3 ml Neb IH SCH (14:30)
--- NOTE | 2024-04-09 15:03 | PCM.CONS ---
History of Present Illness - Neuro Consultation Date of Consultation Date: 04/09/24 ED Arrival Date & Time: 04/09/24 07:43 Requesting Provider: Beata Bryan NP Providers: Attending Provider: GEGE VOSS MD ED Provider: DALLAS COURTNEY Consulting Provider: KIMMIE GRUBER DO Reason for Consult: ICH cc:: The requesting physician will be sent a copy of the consult. - Chief Complaint Patient Subjective Stated Complaint: Rigors, Fever - History of Present Illness HPI: The patient is a 88M PMH HTN, CAD, and recently discharged from OSH for right insular hemorrhage admitted for rigors and fevers found to have UTI Neurology consulted for persistent ICH. One week ago he had acute onset left leg weakness and numbness, found to have right insular hemorrhage. At OSH he had MRI brain which reportedly showed only the hemorrhage. He was told the hemorrhage was likely due to hypertension. Symptoms improved, other than mild left hand numbness, and he was discharged home without any rehab needs. His home ASA was discontinued until outpatient follow up. Today he started having bilateral tremors throughout his body, never on one side, and he was awake and alert for the entire thing. No LOC, incontinence, tongue bite. It lasted for an hour and he was at baseline afterwards. Found to have fevers and UTI in the ED. CTH obtained which showed stable right insular ICH with mild edema. He has no new neurologic symptoms, still with mild left hand numbness which has been stable. No headaches. Location brain, quality hemorrhage, severity moderate, duration 1 week, timing constant, modifying factors hx HTN, associated syptoms none. FH: heart disease SH: no smoking, no alcohol Known stroke risk factors:: CAD, Hypertension Review of Systems - Review of Systems Review of Systems (Narrative): Constitutional: No fever/chills, no weight loss/gain Eyes: No vision loss, No double vision ENT: No hearing loss/tinnitus, no nasal congestion Cardiovascular: No chest pain, no palpitations Respiratory: No shortness of breath, no cough Gastrointestinal: no nausea/vomiting, no diarrhea Genitourinary: No urinary incontinence, no urinary difficulty Musculoskeletal: No significant joint pain, no back pain, no neck pain, no muscle cramps Skin: No rashes, no abrasions Neurological: As per HPI Psychiatric: No depression, no anxiety Endocrine: No heat or cold intolerance, no change in appetite Hematologic/Lymphatic: No easy bruising, no anemia Allergic/Immunologic: No allergic response to food, no swollen lymph nodes - Past Medical History Past Medical History: Yes Neurological History: No Pertinent History ENT History: No Pertinent History Cardiac History: No Pertinent History, Hypertension, Other Respiratory History: No Pertinent History Endocrine Medical History: Thyroid Cancer Musculoskelatal History: No Pertinent History GI Medical History: Hernia History: No Pertinent History Pyscho-Social History: No Pertinent History Male Reproductive Disorders: No Pertinent History Comment: head bleed 03/2024, 4 x bypass and valve repair - Past Surgical History Past Surgical History: Yes Neuro Surgical History: No Pertinent History Cardiac History: CABG, Valve Replacement Respiratory Surgery: No Pertinent History GI Surgical History: Hernia Repair Genitourinary Surgical Hx: No Pertinent History Musculskeletal Surgical Hx: No Pertinent History Male Surgical History: No Pertinent History - Social History Smoking Status: Never smoker Exposure to second hand smoke: No Alcohol: None Drug Use: none - Social Determinants of Health Will the patient participate in the screening: Declined to provide Physical Exam - Vital Signs Vital Signs: Vital Signs - 24 hr 04/09/24 04/09/24 04/09/24 07:55 07:56 08:00 Temperature Pulse Rate 96 H 91 H Respiratory 25 H 25 H Rate Blood Pressure 130/70 100/70 Blood Pressure [Left Arm] O2 Sat by Pulse 87 L 94 L 91 L Oximetry 04/09/24 04/09/24 04/09/24 08:10 08:11 08:30 Temperature 104.5 F Pulse Rate 82 Respiratory 17 Rate Blood Pressure 119/63 Blood Pressure [Left Arm] O2 Sat by Pulse 88 L 93 L Oximetry 04/09/24 04/09/24 04/09/24 09:00 09:30 10:00 Temperature Pulse Rate 80 80 80 Respiratory 18 15 10 L Rate Blood Pressure 118/65 112/67 119/64 Blood Pressure [Left Arm] O2 Sat by Pulse 95 98 99 Oximetry 04/09/24 04/09/24 04/09/24 10:30 10:47 11:00 Temperature 99.9 F Pulse Rate 84 78 Respiratory 19 17 Rate Blood Pressure 112/64 139/70 Blood Pressure [Left Arm] O2 Sat by Pulse 98 99 Oximetry 12/03/24 12/03/24 12/03/24 11:01 11:30 12:29 Temperature Pulse Rate 70 Respiratory 18 Rate Blood Pressure 114/67 Blood Pressure [Left Arm] O2 Sat by Pulse 88 L 99 94 L Oximetry 04/09/24 12:57 Temperature 99.9 F Pulse Rate 70 Respiratory 12 Rate Blood Pressure Blood Pressure 141/65 [Left Arm] O2 Sat by Pulse 94 L Oximetry - Physical Exam Tele-Neuro Physical Exam (Narrative): Constitutional: Well developed, no deformities, no acute distress. Eyes: No ptosis, anicteric, see cranial nerves exam below. Ears, nose, mouth, throat: No vesicular lesions or rash in the ears, nose, or lips, see cranial nerves exam below. Cardiovascular: Regular rhythm and rate, no peripheral swelling or tenderness. Respiratory: Breathing comfortably on RA. No wheezes. Gastrointestinal: No masses or tenderness, no organomegaly. Musculoskeletal: See motor and gait examinations below. Skin: No rash or palpable lesions in face, hands, and feet. Psychiatry: No significant depression or agitation, see mental status exam below. Neuro Exam Mental Status: A&O to time, place, person, and situation. Language and Speech: Spontaneous & fluent with good comprehension. No dysarthria. Cranial Nerves: II, III: VFF to finger count III, IV, : Extraocular movements intact, no ptosis, no nystagmus. V: Absent light touch V1-V3 on the left VII: Symmetric without weakness. VIII: Hearing intact to voice. IX, X: Palate elevates symmetrically. XI: 5/5 strength in trapezius & sternocleidomastoid bilaterally. XII: Tongue is midline with symmetric movement. Motor Exam: Sustains antigravity diffusely. Sensation: Subtle left hand numbness to light touch. Otherwise intact to light touch throughout. Coordination: Intact Finger to nose. Reflexes: unable to assess due to televisit Gait: Deferred - Physical Exam Motor: antigravity in all 4 ext Sens:: intact to touch in all 4 Results - Labs Lab/Micro Results: Lab Results-Last 24 Hours 04/09/24 04/09/24 04/09/24 Range/Units 08:09 08:09 08:15 WBC 10.2 H (4.23-9.07) x10^3/uL RBC 3.41 L (4.63-6.08) x10^6/uL Hgb 10.7 L (13.7-17.5) g/dL Hct 32.7 L (40.1-51.0) % MCV 95.9 H (79.0-92.2) fL MCH 31.4 (25.7-32.2) pg MCHC 32.7 (32.3-36.5) g/dL RDW 13.4 (11.6-14.4) % Plt Count 135 L (163-337) x10^3/uL MPV 10.3 (9.4-12.4) fL Gran % 95.4 H (34.0-67.9) % Immature Gran % (Auto) 0.3 (0.001-0.429) % Nucleat RBC Rel Count 0.0 (0.00-0.2) % Eos # (Auto) 0.04 (0.04-0.54) x10^3/uL Immature Gran # (Auto) 0.03 (0.001-0.031) x10^3u/L Absolute Lymphs (auto) 0.28 L (1.32-3.57) x10^3/uL Absolute Monos (auto) 0.08 L (0.30-0.82) x10^3/uL Absolute Nucleated RBC 0.00 (0.00-0.012) x10^3u/L Lymphocytes % 2.8 L (21.8-53.1) % Monocytes % 0.8 L (5.3-12.2) % Eosinophils % 0.4 L (0.8-7.0) % Basophils % 0.3 (0.2-1.2) % Absolute Granulocytes 9.72 H (1.78-5.38) x10^3/uL Basophils # 0.03 (0.01-0.08) x10^3/uL Sodium 140 (135-145) mmol/L Potassium 4.1 (3.5-5.1) mmol/L Chloride 109 H (98-107) mmol/L Carbon Dioxide 25 (22-30) mmol/L Anion Gap 10.7 (5-15) MEQ/L BUN 42 H (9-20) mg/dL Creatinine 1.37 H (0.66-1.25) mg/dL Estimated GFR 49.9 ML/MIN Glucose 111 H (74-106) mg/dL Lactic Acid 1.5 (0.4-2.0) Calcium 9.6 (8.4-10.2) mg/dL Magnesium 1.5 L (1.6-2.3) mg/dL Total Bilirubin 0.80 (0.2-1.3) mg/dL AST 29 (17-59) U/L ALT 27 (0-50) U/L Alkaline Phosphatase 65 (38-126) U/L NT-Pro-B Natriuret Pep 470 (<300) pg/mL Serum Total Protein 6.8 (6.3-8.2) g/dL Albumin 3.9 (3.5-5.0) g/dL TSH 3rd Generation 1.498 (0.470-4.680) mIU/L Urine Color (Yellow) Urine Appearance (Clear) Urine pH (4.6-8.0) Ur Specific [place] (1.005-1.030) Urine Protein (Negative) Urine Glucose (UA) (Negative) mg/dL Urine Ketones (Negative) Urine Blood (Negative) Urine Nitrite (Negative) Urine Bilirubin (Negative) Urine Urobilinogen (0.2) mg/dL Ur Leukocyte Esterase (Negative) U Hyaline Cast (Auto) (0-2) /LPF Urine Microscopic RBC (0-5) /HPF Urine Microscopic WBC (0-5) /HPF Ur Epithelial Cells (None Seen) /HPF Urine Bacteria (None Seen) /HPF Urine Culture Reflexed (NO) Influenza Type A Ag (NEGATIVE) Influenza Type B Ag (NEGATIVE) RSV (PCR) (NEGATIVE) SARS-CoV-2 (PCR) (NEGATIVE) 04/09/24 04/09/24 Range/Units 08:33 09:19 WBC (4.23-9.07) x10^3/uL RBC (4.63-6.08) x10^6/uL Hgb (13.7-17.5) g/dL Hct (40.1-51.0) % MCV (79.0-92.2) fL MCH (25.7-32.2) pg MCHC (32.3-36.5) g/dL RDW (11.6-14.4) % Plt Count (163-337) x10^3/uL MPV (9.4-12.4) fL Gran % (34.0-67.9) % Immature Gran % (Auto) (0.001-0.429) % Nucleat RBC Rel Count (0.00-0.2) % Eos # (Auto) (0.04-0.54) x10^3/uL Immature Gran # (Auto) (0.001-0.031) x10^3u/L Absolute Lymphs (auto) (1.32-3.57) x10^3/uL Absolute Monos (auto) (0.30-0.82) x10^3/uL Absolute Nucleated RBC (0.00-0.012) x10^3u/L Lymphocytes % (21.8-53.1) % Monocytes % (5.3-12.2) % Eosinophils % (0.8-7.0) % Basophils % (0.2-1.2) % Absolute Granulocytes (1.78-5.38) x10^3/uL Basophils # (0.01-0.08) x10^3/uL Sodium (135-145) mmol/L Potassium (3.5-5.1) mmol/L Chloride (98-107) mmol/L Carbon Dioxide (22-30) mmol/L Anion Gap (5-15) MEQ/L BUN (9-20) mg/dL Creatinine (0.66-1.25) mg/dL Estimated GFR ML/MIN Glucose (74-106) mg/dL Lactic Acid (0.4-2.0) Calcium (8.4-10.2) mg/dL Magnesium (1.6-2.3) mg/dL Total Bilirubin (0.2-1.3) mg/dL AST (17-59) U/L ALT (0-50) U/L Alkaline Phosphatase (38-126) U/L NT-Pro-B Natriuret Pep (<300) pg/mL Serum Total Protein (6.3-8.2) g/dL Albumin (3.5-5.0) g/dL TSH 3rd Generation (0.470-4.680) mIU/L Urine Color [place] A (Yellow) Urine Appearance Cloudy A (Clear) Urine pH 6.0 (4.6-8.0) Ur Specific [place] 1.015 (1.005-1.030) Urine Protein 100 A (Negative) Urine Glucose (UA) Negative (Negative) mg/dL Urine Ketones Negative (Negative) Urine Blood Large A (Negative) Urine Nitrite Negative (Negative) Urine Bilirubin Negative (Negative) Urine Urobilinogen 1.0 A (0.2) mg/dL Ur Leukocyte Esterase Small A (Negative) U Hyaline Cast (Auto) NONE SEEN (0-2) /LPF Urine Microscopic RBC >100 A (0-5) /HPF Urine Microscopic WBC 11-20 A (0-5) /HPF Ur Epithelial Cells None Seen (None Seen) /HPF Urine Bacteria Moderate A (None Seen) /HPF Urine Culture Reflexed ORDERED SEPARATELY (NO) Influenza Type A Ag NEGATIVE (NEGATIVE) Influenza Type B Ag NEGATIVE (NEGATIVE) RSV (PCR) NEGATIVE (NEGATIVE) SARS-CoV-2 (PCR) NEGATIVE (NEGATIVE) - Other Procedures & Test Other Procedures & Test: Respiratory Therapy 04/09/24 14:30 Respiratory Therapy Assessment DAILY - Radiology Orders Radiology Orders: Radiology Procedures Category Date Time Status CHEST 1 VIEW (PORTABLE) Stat Exams 04/09/24 09:30 Completed HEAD WITHOUT CONTRAST [CT] Stat Exams 04/09/24 07:45 Completed - CT Impressions CT Head w/o contrast Status: image reviewed by me (right insular hemorrhage with minimal edema) Impressions & Recommendations - Impression Acute Ischemic Stroke: 88yo male PMH HTN, CAD and recent right insular ICH admitted for UTI and sepsis with stable right insular ICH on CTH. Home ASA currently on hold. No new neurologic symptoms other than subtle left hand numbness. Was discharged home from other facility with workup completed, all thought to be hypertension related. CTH here with no change, stable ICH. Episode of diffuse tremors lasting 1hr while awake and alert without laterality is likely rigors from fevers and UTI, not consistent with seizure. - ED Arrival Time ED Arrival Date & Time: ED Arrival Date and Time 04/09/24 07:43 Last known well time: - NIHSS IV Thrombolysis Standard of Care: IV thrombolysis as a standard of care in acute stroke discussed with DALLAS COURTNEY. Risk, benefits, and options of IV thrombolytic therapy for acute ischemic stroke were discussed with the patient/family HUGO CAROLINE ANNON. We discussed that use of IV tenecteplase is in line with national stroke guidelines. We discussed that risks of IV thrombolytic use include intracranial hemorrhage, other fatal bleeding risks, and angioedema. Alternatives of treatment, including not proceeding with thrombolytic therapy were discussed. - Recommendations Recommendations: Recommendations: -No further inpatient neurologic workup -SBP goal <140 -Hold home ASA until outpatient Neurosurgery follow up, usually at least 2-4 weeks after onset of ICH -Abx per primary -No need for PT as he was already seen by PT at outside facility -If any acute change in mental status or neuro exam obtain CT head noncon Thank you for allowing us to participate in this patient's care. Please call [facility] with questions, concerns, or change in patient's neurological status. This consult was performed via secure telemedicine audio/visual platform with RN assisting at bedside. Patient identity verified and consent obtained. Assessment & Plan (1) Intracerebral hemorrhage Current Visit: No Status: Chronic Qualifiers: Intracerebral hemorrhage etiology: nontraumatic Cerebral hemorrhage location: cerebral hemisphere, cortical portion Laterality: right Qualified Code(s): I61.1 - Nontraumatic intracerebral hemorrhage in hemisphere, cortical Code(s): I61.9 - NONTRAUMATIC INTRACEREBRAL HEMORRHAGE, UNSPECIFIED (2) HTN (hypertension) Current Visit: Yes Status: Chronic Qualifiers: Hypertension type: primary hypertension Qualified Code(s): I10 - Essential (primary) hypertension Code(s): I10 - ESSENTIAL (PRIMARY) HYPERTENSION (3) Fever Current Visit: Yes Status: Acute Qualifiers: Fever type: due to other condition Qualified Code(s): R50.81 - Fever presenting with conditions classified elsewhere Code(s): R50.9 - FEVER, UNSPECIFIED (4) UTI (urinary tract infection) Current Visit: Yes Status: Acute Code(s): N39.0 - URINARY TRACT INFECTION, SITE NOT SPECIFIED (5) Rigors Current Visit: Yes Status: Acute Code(s): R68.89 - OTHER GENERAL SYMPTOMS AND SIGNS - Encounter Encounter: "The entirety of this encounter was performed via Telemedicine using audio and visual "
[2024-04-09] MEDS: TYLENOL 325 MG PO PRN (16:13)
[2024-04-09] MEDS: Compazine 10 MG/2 ML IV PRN (16:53)
[2024-04-09] MEDS ORDERED: NON-FORMULARY ITEM (Pravastatin Sodium [Pravastatin Sodium] 40 MG Tablet) PO SCH (22:00)
[2024-04-09] MEDS: ZOCOR 20MG PO SCH (22:00)
[2024-04-10 05:01] LABS: Hematocrit 29.4 % (40.1-51.0); Hemoglobin 9.5 g/dL (13.7-17.5); Mean Cell Volume 97.4 fL (79.0-92.2); Mean Corpuscular Hemoglobin 31.5 pg (25.7-32.2); Mean Corpuscular Hgb Concent. 32.3 g/dL (32.3-36.5); Mean Platelet Volume 10.8 fL (9.4-12.4); Platelet Count 125 x10^3/uL (163-337); Red Blood Count 3.02 x10^6/uL (4.63-6.08); White Blood Count 17.9 x10^3/uL (4.23-9.07)
[2024-04-10 05:19] LABS: ALBUMIN 3.3 g/dL (3.5-5.0); ANION GAP 11.4 MEQ/L (5-15); BILIRUBIN,TOTAL 0.7 mg/dL (0.2-1.3); Calcium 8.7 mg/dL (8.4-10.2); Creatinine 1 1.66 mg/dL (0.66-1.25); EST GLOMERULAR FILTRATION RATE 39.7 ML/MIN; Potassium 4.1 mmol/L (3.5-5.1); Total Protein 6.1 g/dL (6.3-8.2)
[2024-04-10] MEDS ORDERED: DUONEB 0.5-3 MG/3 ml Neb IH PRN (06:30)
[2024-04-10] MEDS: SYNTHROID 125 MCG PO SCH (06:46)
[2024-04-10] MEDS: Piperacillin/Tazobactam 2.25 GM 2.25 GM in Sodium Chloride 100ML MINI-BAG PLUS 100 ML IV SCH (08:18)
[2024-04-10] MEDS: Zestril 20 MG PO SCH (09:03)
[2024-04-10] MEDS ORDERED: ROCEPHIN 1 GM / 100 ML NaCl 1 GM/100 ML IVPB IV SCH (10:00)
[2024-04-10] MEDS ORDERED: NON-FORMULARY ITEM (Lisinopril [Zestril] 40 MG Tablet) PO SCH (10:00)
[2024-04-10] MEDS ORDERED: NON-FORMULARY ITEM (Amlodipine Besylate [Norvasc] 10 MG Tablet) PO SCH (10:00)
--- NOTE | 2024-04-10 11:24 | PCM.NOTE ---
Date and Time: 04/10/24 1116 Subjective Assessment: 04/09/24 is a 88 year old male with PMHX of HTN. CABG, thyroid cancer, and recent stroke 03/2024 and just release from the hospital yesterday. He presented to our ED via EMS for evaluation of subjective fever, rigor, generalized weakness, and hematuria. Patient was in our ED approximately 5 days ago. Patient was diagnosed with a right insular hemorrhagic stroke. Patient was transferred to [facility] for further evaluation and treatment. Patient was discharged yesterday. He reports only having residual left finger tip numbness. Patient reports new sxs started yesterday. Patient reports he did have an in and out cath done twice while in [facility] for urinary retention. He did not go home with a cath and has been able to urinate fine except for hematuria. He states this has improved this AM but does have some associated dysuria. UA + for UTI and IV antibiotics started. UC pending. IV fluids gave in ER and stopped due to pulm congestion. It appears he is also uroseptic, BCx2 completed in ER. He denies CP, SOB, Abd. pain, N/V/D. 2LNC placed on pt for comfort in ER. Pt does not wear oxygen at home. 04/10/24 Pt resting in the chair. He states he feels better today. It appears pt had a fever last night and this morning. WBC elevate at 17.9, Creat increased 1.66, and UC Gram +. Ceftriaxone changed to Vancomycin and Zosyn. IV lasix was not gave yesterday and pt denies SOB or edema. Will start NS at 50ml/ hr for BERTRAND. Tele- neurology consulted yesterday for CT head findings and they recommended to continue to hold ASA for 2 weeks until he f/u with OP neurology. No other recs at this time. He denies CP, SOB, abd. pain, N/V/D. - Review of Systems Constitutional: Fever, No Chills Eyes: No Symptoms Ears, Nose, & Throat: No Symptoms Respiratory: No Cough, No Short Of Breath Cardiac: No Chest Pain, No Edema, No Syncope Abdominal/Gastrointestinal: No Abdominal Pain, No Nausea, No Vomiting, No Diarrhea Genitourinary Symptoms: No Dysuria Musculoskeletal: No Back Pain, No Neck Pain Skin: No Rash Neurological: No Dizziness, No Focal Weakness, No Sensory Changes Psychological: No Symptoms Endocrine: No Symptoms Hematologic/Lymphatic: No Symptoms Immunological/Allergic: No Symptoms Objective Exam General Appearance: no apparent distress, alert Neurologic Exam: alert, oriented x 3, cooperative, normal mood/affect, nml cerebellar function, sensation nml, No motor deficits Skin Exam: normal color, warm, dry Eye Exam: PERRL, EOMI, eyes nml inspection Ears, Nose, Throat Exam: normal ENT inspection, pharynx normal, moist mucous membranes Neck Exam: normal inspection, non-tender, supple, full range of motion Respiratory Exam: normal breath sounds, lungs clear, No respiratory distress Cardiovascular Exam: regular rate/rhythm, normal heart sounds Gastrointestinal/Abdomen Exam: soft, No tenderness, No mass Extremity Exam: normal inspection, normal range of motion Back Exam: normal inspection, normal range of motion, No CVA tenderness, No vertebral tenderness Male Genitalia Exam: deferred Rectal Exam: deferred Objective Data Vital Signs: Vital Signs - 24 hr Temp Pulse Resp BP BP Pulse Ox 04/10/24 07:34 98.5 F 64 18 123/68 94 L 04/10/24 06:26 67 16 95 04/10/24 04:00 99.7 F 73 19 122/67 94 L 04/10/24 00:00 98.6 F 79 21 98/58 95 04/09/24 20:00 100.9 F 74 18 109/54 96 04/09/24 19:39 74 16 93 L 04/09/24 16:18 100.6 F 04/09/24 15:42 80 16 97 04/09/24 12:57 99.9 F 70 12 141/65 94 L 04/09/24 12:29 94 L 04/09/24 11:30 70 18 114/67 99 Pain Assessment - Last Documented Pain Intensity 0 Pain Scale Used 0-10 Pain Scale Intake and Output: Intake & Output 04/07/24 04/08/24 04/09/24 04/10/24 11:59 11:59 11:59 11:59 Intake Total 1763 Balance 1763 Weight 67.4 kg 64.4 kg Lab Results: Lab Results-Last 24 Hours 04/10/24 04/10/24 Range/Units 04:15 04:15 WBC 17.9 H (4.23-9.07) x10^3/uL RBC 3.02 L (4.63-6.08) x10^6/uL Hgb 9.5 L (13.7-17.5) g/dL Hct 29.4 L (40.1-51.0) % MCV 97.4 H (79.0-92.2) fL MCH 31.5 (25.7-32.2) pg MCHC 32.3 (32.3-36.5) g/dL RDW 14.0 (11.6-14.4) % Plt Count 125 L (163-337) x10^3/uL MPV 10.8 (9.4-12.4) fL Sodium 137 (135-145) mmol/L Potassium 4.1 (3.5-5.1) mmol/L Chloride 106 (98-107) mmol/L Carbon Dioxide 24 (22-30) mmol/L Anion Gap 11.4 (5-15) MEQ/L BUN 41 H (9-20) mg/dL Creatinine 1.66 H (0.66-1.25) mg/dL Estimated GFR 39.7 ML/MIN Glucose 98 (74-106) mg/dL Calcium 8.7 (8.4-10.2) mg/dL Total Bilirubin 0.70 (0.2-1.3) mg/dL AST 26 (17-59) U/L ALT 20 (0-50) U/L Alkaline Phosphatase 45 (38-126) U/L Serum Total Protein 6.1 L (6.3-8.2) g/dL Albumin 3.3 L (3.5-5.0) g/dL Radiology Exams: Radiology Procedures Category Date Time Status CHEST 1 VIEW (PORTABLE) Stat Exams 04/09/24 09:30 Completed HEAD WITHOUT CONTRAST [CT] Stat Exams 04/09/24 07:45 Completed Multi-Disciplinary Progress Notes: Multi-Disciplinary Progress Notes 04/10/24 10:58 Pharmacy Note by Nico Cornejo Pharmacokinetic dosing service Date: 04/10/24 Time: 1100 Objective: Patient: HUGO BOSTON Floor: 114 Age: 88 yo Serum creatinine: 1.66 mg/dL Height: 63 Inches Weight (kg): 64 Diagnosis: COMPLICATED UTI Relevant medical/social history: Cultures and sensitivities: PENDING Other labs: SR CR = 1.66 Assessment: IBW (kg): 56.90 Dosing wt(kg): 64 Estimated Creatinine clearance (ml/min): 25.2 CRCL method: Cockcroft and Gault using ibw(default). Drug selected: Vancomycin Loading dose (mg): 0 Vd (liters): 44.8 (factor used: 0.7 L/kg) Micheal (hr-1): 0.025 Half life (hrs): 27.73 Recommended dose: 1000 mg Interval: 36 hrs Infusion time (hrs): 1.5 Predicted peak (mcg/mL): 36.9 Predicted trough (mcg/mL): 15.58 Total body weight is being used for vancomycin dosing. Renal function is stable [ ] /unstable [XXX ] Recommendations: Give Vancomycin 1000 mg q 36 hrs with an expected Cpeak of 36.9 mcg/ml and an expected Ctrough of 15.58 mcg/ml Renal dosing of other antibiotics (review renal dosing of other medications and list guidelines here): ZOSYN 2.25 Thank you for the consult, will continue to follow. Signature: Jennifer CORNEJO TROUGH 04/13/24 0930 Initialized on 04/10/24 10:58 - END OF NOTE 04/10/24 10:10 (created 04/10/24 11:06) Case Management Note by Cassie Burk S/Luiz PATIENT AND DAUGHTER KENNA AT BEDSIDE- PATIENT CONTINUES TO DENY ANY NEW NEEDS AT TIME OF DC. PATIENT REPORTS HIS DAUGHTER OR SON CAN STAY WITH HIM AT DC IF NEEDED. HE CURRENTLY DECLINES ANY HHC. HE PLANS TO RETURN HOME TO HIS PLF AT TIME OF DC Initialized on 04/10/24 11:06 - END OF NOTE 04/09/24 12:29 Respiratory Note by Jaycee Valencia Pt was an admit from [facility] Pt on 2L NC. sats 98%. Placed on roomair. Waited 20mins rechecked sats on room air 94%. Initialized on 04/09/24 12:29 - END OF NOTE Assessment/Plan (1) Sepsis Current Visit: Yes Status: Acute (2) UTI (urinary tract infection) Current Visit: Yes Status: Acute Code(s): N39.0 - URINARY TRACT INFECTION, SITE NOT SPECIFIED (3) Fever Current Visit: Yes Status: Acute Qualifiers: Fever type: due to other condition Qualified Code(s): R50.81 - Fever presenting with conditions classified elsewhere Code(s): R50.9 - FEVER, UNSPECIFIED (4) Hypoxia Current Visit: Yes Status: Acute Code(s): R09.02 - HYPOXEMIA (5) Chronic renal insufficiency Current Visit: No Status: Chronic Code(s): N18.9 - CHRONIC KIDNEY DISEASE, UNSPECIFIED (6) Intracerebral hemorrhage Current Visit: No Status: Chronic Qualifiers: Intracerebral hemorrhage etiology: nontraumatic Cerebral hemorrhage location: cerebral hemisphere, cortical portion Laterality: right Qualified Code(s): I61.1 - Nontraumatic intracerebral hemorrhage in hemisphere, cortical Code(s): I61.9 - NONTRAUMATIC INTRACEREBRAL HEMORRHAGE, UNSPECIFIED (7) Hypothyroidism Current Visit: Yes Status: Chronic Code(s): E03.9 - HYPOTHYROIDISM, UNSPECIFIED (8) HTN (hypertension) Current Visit: Yes Status: Chronic Qualifiers: Hypertension type: primary hypertension Qualified Code(s): I10 - Essential (primary) hypertension Assessment & Plan: (1) Sepsis Current Visit: Yes Status: Acute Assessment & Plan: - Urosepsis - UC and BC x 2 pending - Temp > 100.4 - Resp > 20 - HR > 90 - Lactate 1.5- WNL - IVF gave in ER - IV antibiotic - Tylenol for fever 04/10 - UC gram + - BC x2- pending - Antibiotocs changed to Zosyn and vancomycin pharmacy to dose (2) UTI (urinary tract infection) Current Visit: Yes Status: Acute Assessment & Plan: - with hematuria - Levaquin gave in ER- start ceftriaxone tomorrow - UC pending - Pt has some recent urinary retention after CVA in the hospital and was cathed twice. - Pt feels dx is r/t this. - No prior hx of UTI's - Consider US if continued hematuria - CBC, CMP reviewed 04/10 - CBC, CMP reviewed - WBC 17.9 - UC gram + - BC x2- pending - Antibiotocs changed to Zosyn and vancomycin pharmacy to dose - Fever yesterday evening and last night Code(s): N39.0 - URINARY TRACT INFECTION, SITE NOT SPECIFIED (3) Fever Current Visit: Yes Status: Acute Assessment & Plan: - Temp of 104.5 on admission- improving - trend - UC and BC x2 pending - IV antibiotic- Levaquin gave in ER- will start ceftriaxone IP tomorrow - Tylenol PRN- gave x1 in ER - 2:2 UTI 04/10 - Fever yesterday evening and last night Code(s): R50.9 - FEVER, UNSPECIFIED (4) Hypoxia Current Visit: Yes Status: Acute Assessment & Plan: - CXR reviewed - on 2lNC - 99%- baseline RA - RT wean O2 keep sat > 92% - duonebs Q6 - Lasix IV x1- for residual pleural effusion Left side as seen on CXR - IV fluids stopped 04/10 - RA 94%- resolved Code(s): R09.02 - HYPOXEMIA (5) Chronic renal insufficiency Current Visit: No Status: Chronic Assessment & Plan: - at baseline renal function 04/10 - BERTRAND on CRF- Creat 1.66- baseline 1.34 - NS @ 50ml/hr Code(s): N18.9 - CHRONIC KIDNEY DISEASE, UNSPECIFIED (6) Intracerebral hemorrhage Current Visit: No Status: Chronic Assessment & Plan: - Recent dx with d/c from [facility] yesterday - Finger tips on left hand numb post CVA - CT head today: Redemonstration of right insular region hemorrhage showing no interval change in size and morphology. Mild adjacent perilesional edema seen without midline shift. Follow-up is advised. No interval change since prior study, - Tele- Neurology consulted for further eval of CT head- may need possible MRI for further eval of mild adjacent perilesional edema - Discussed with tele- neurology and they recommend to hold ASA for 2 weeks post event and f/u with neurology to eval if this needs restarted. No other recs at this time. Code(s): I61.9 - NONTRAUMATIC INTRACEREBRAL HEMORRHAGE, UNSPECIFIED (7) Hypothyroidism Current Visit: Yes Status: Chronic Assessment & Plan: - continue synthroid Code(s): E03.9 - HYPOTHYROIDISM, UNSPECIFIED (8) HTN (hypertension) Current Visit: Yes Status: Chronic Assessment & Plan: - BP stable - Continue home meds VTE: SCD's PPI: Protonix Next of KIN: Daughter Code status: Full D/C plan: 1-2 days Code(s): I10 - ESSENTIAL (PRIMARY) HYPERTENSION Code(s): I10 - ESSENTIAL (PRIMARY) HYPERTENSION
[2024-04-10] MEDS: PHARMACY DOSING REQUIRED: VANCOMYCIN IV STA (11:59)
[2024-04-10] MEDS: VANCOMYCIN 1 GRAM/200 ML BAG 1 GM/200 ML PIGGYBACK IV SCH (11:59)
[2024-04-10] MEDS: Sodium Chloride 0.9% 1000 ML 1,000 ML IV SCH (11:59)
[2024-04-10] MEDS ORDERED: PIPERACILLIN/TAZOBACTAM 3.375 GM in Sodium Chloride 100ML MINI-BAG PLUS 100 ML IV SCH (12:00)
[2024-04-10] MEDS ORDERED: Lasix 20 MG/2 ML IV ONE (12:14)
[2024-04-11 04:53] LABS: Hematocrit 28.7 % (40.1-51.0); Hemoglobin 9.1 g/dL (13.7-17.5); Mean Cell Volume 96.6 fL (79.0-92.2); Mean Corpuscular Hemoglobin 30.6 pg (25.7-32.2); Mean Corpuscular Hgb Concent. 31.7 g/dL (32.3-36.5); Mean Platelet Volume 10.9 fL (9.4-12.4); Platelet Count 132 x10^3/uL (163-337); Red Blood Count 2.97 x10^6/uL (4.63-6.08); White Blood Count 11.9 x10^3/uL (4.23-9.07)
[2024-04-11 06:14] LABS: ALBUMIN 3.3 g/dL (3.5-5.0); ANION GAP 11.5 MEQ/L (5-15); BILIRUBIN,TOTAL 0.5 mg/dL (0.2-1.3); Calcium 8.6 mg/dL (8.4-10.2); Creatinine 1 1.81 mg/dL (0.66-1.25); EST GLOMERULAR FILTRATION RATE 35.7 ML/MIN; Total Protein 6.2 g/dL (6.3-8.2)
[2024-04-11] MEDS: Levofloxacin 250MG Tablet PO SCH (09:10)
[2024-04-11] MEDS: Levofloxacin 500 MG Tablet PO SCH (09:10)
--- NOTE | 2024-04-11 09:56 | PCM.NOTE ---
Date and Time: 04/11/24 0945 Subjective Assessment: 04/09/24 is a 88 year old male with PMHX of HTN. CABG, thyroid cancer, and recent stroke 03/2024 and just release from the hospital yesterday. He presented to our ED via EMS for evaluation of subjective fever, rigor, generalized weakness, and hematuria. Patient was in our ED approximately 5 days ago. Patient was diagnosed with a right insular hemorrhagic stroke. Patient was transferred to [facility] for further evaluation and treatment. Patient was discharged yesterday. He reports only having residual left finger tip numbness. Patient reports new sxs started yesterday. Patient reports he did have an in and out cath done twice while in [facility] for urinary retention. He did not go home with a cath and has been able to urinate fine except for hematuria. He states this has improved this AM but does have some associated dysuria. UA + for UTI and IV antibiotics started. UC pending. IV fluids gave in ER and stopped due to pulm congestion. It appears he is also uroseptic, BCx2 completed in ER. He denies CP, SOB, Abd. pain, N/V/D. 2LNC placed on pt for comfort in ER. Pt does not wear oxygen at home. 04/10/24 Pt resting in the chair. He states he feels better today. It appears pt had a fever last night and this morning. WBC elevate at 17.9, Creat increased 1.66, and UC Gram +. Ceftriaxone changed to Vancomycin and Zosyn. IV lasix was not gave yesterday and pt denies SOB or edema. Will start NS at 50ml/ hr for BERTRAND. Tele- neurology consulted yesterday for CT head findings and they recommended to continue to hold ASA for 2 weeks until he f/u with OP neurology. No other recs at this time. He denies CP, SOB, abd. pain, N/V/D. 04/11/24 Pt resting in bed. He was up walking in the unit this morning and doing well. He reports he is feeling much better today. BERTRAND worse and lisinopril stopped. Continue IVF. UC + for staph- antibiotic changed per sensitivity results. BC x1 gram+ and pending. Discussed labs in detail with pt and pt will likely d/c tomorrow. - Review of Systems Constitutional: No Fever, No Chills Eyes: No Symptoms Ears, Nose, & Throat: No Symptoms Respiratory: No Cough, No Short Of Breath Cardiac: No Chest Pain, No Edema, No Syncope Abdominal/Gastrointestinal: No Abdominal Pain, No Nausea, No Vomiting, No Diarrhea Genitourinary Symptoms: No Dysuria Musculoskeletal: No Back Pain, No Neck Pain Skin: No Rash Neurological: No Dizziness, No Focal Weakness, No Sensory Changes Psychological: No Symptoms Endocrine: No Symptoms Hematologic/Lymphatic: No Symptoms Immunological/Allergic: No Symptoms Objective Exam General Appearance: no apparent distress, alert Neurologic Exam: alert, oriented x 3, cooperative, normal mood/affect, nml cerebellar function, sensation nml, No motor deficits Skin Exam: normal color, warm, dry Eye Exam: PERRL, EOMI, eyes nml inspection Ears, Nose, Throat Exam: normal ENT inspection, pharynx normal, moist mucous membranes Neck Exam: normal inspection, non-tender, supple, full range of motion Respiratory Exam: normal breath sounds, lungs clear, No respiratory distress Cardiovascular Exam: regular rate/rhythm, normal heart sounds Gastrointestinal/Abdomen Exam: soft, No tenderness, No mass Extremity Exam: normal inspection, normal range of motion Back Exam: normal inspection, normal range of motion, No CVA tenderness, No vertebral tenderness Male Genitalia Exam: deferred Rectal Exam: deferred Objective Data Vital Signs: Vital Signs - 24 hr Temp Pulse Resp BP Pulse Ox 04/11/24 08:24 60 16 95 04/11/24 08:00 97.7 F 63 18 166/72 98 04/11/24 04:00 98.3 F 64 21 134/64 95 04/10/24 23:45 99.4 F 61 20 129/75 96 04/10/24 20:00 98.6 F 62 18 115/57 96 04/10/24 19:10 62 18 94 L 04/10/24 16:00 98.1 F 60 18 116/62 93 L 04/10/24 11:36 98.0 F 63 18 104/55 91 L Pain Assessment - Last Documented Pain Intensity 0 Pain Scale Used 0-10 Pain Scale Intake and Output: Intake & Output 04/08/24 04/09/24 04/10/24 04/11/24 11:59 11:59 11:59 11:59 Intake Total 1763 2256 Output Total 150 Balance 1763 2106 Weight 67.4 kg 64.4 kg Lab Results: Lab Results-Last 24 Hours 04/11/24 04/11/24 Range/Units 04:23 04:23 WBC 11.9 H (4.23-9.07) x10^3/uL RBC 2.97 L (4.63-6.08) x10^6/uL Hgb 9.1 L (13.7-17.5) g/dL Hct 28.7 L (40.1-51.0) % MCV 96.6 H (79.0-92.2) fL MCH 30.6 (25.7-32.2) pg MCHC 31.7 L (32.3-36.5) g/dL RDW 14.0 (11.6-14.4) % Plt Count 132 L (163-337) x10^3/uL MPV 10.9 (9.4-12.4) fL Sodium 138 (135-145) mmol/L Potassium 4.0 (3.5-5.1) mmol/L Chloride 109 H (98-107) mmol/L Carbon Dioxide 22 (22-30) mmol/L Anion Gap 11.5 (5-15) MEQ/L BUN 39 H (9-20) mg/dL Creatinine 1.81 H (0.66-1.25) mg/dL Estimated GFR 35.7 ML/MIN Glucose 97 (74-106) mg/dL Calcium 8.6 (8.4-10.2) mg/dL Total Bilirubin 0.50 (0.2-1.3) mg/dL AST 27 (17-59) U/L ALT 23 (0-50) U/L Alkaline Phosphatase 52 (38-126) U/L Serum Total Protein 6.2 L (6.3-8.2) g/dL Albumin 3.3 L (3.5-5.0) g/dL Radiology Exams: Radiology Procedures Category Date Time Status CHEST 1 VIEW (PORTABLE) Stat Exams 04/09/24 09:30 Completed Multi-Disciplinary Progress Notes: Multi-Disciplinary Progress Notes 04/10/24 10:58 Pharmacy Note by Nico Mantilla Pharmacokinetic dosing service Date: 04/10/24 Time: 1100 Objective: Patient: HUGO BOSTON Floor: 114 Age: 88 yo Serum creatinine: 1.66 mg/dL Height: 63 Inches Weight (kg): 64 Diagnosis: COMPLICATED UTI Relevant medical/social history: Cultures and sensitivities: PENDING Other labs: SR CR = 1.66 Assessment: IBW (kg): 56.90 Dosing wt(kg): 64 Estimated Creatinine clearance (ml/min): 25.2 CRCL method: Cockcroft and Gault using ibw(default). Drug selected: Vancomycin Loading dose (mg): 0 Vd (liters): 44.8 (factor used: 0.7 L/kg) Micheal (hr-1): 0.025 Half life (hrs): 27.73 Recommended dose: 1000 mg Interval: 36 hrs Infusion time (hrs): 1.5 Predicted peak (mcg/mL): 36.9 Predicted trough (mcg/mL): 15.58 Total body weight is being used for vancomycin dosing. Renal function is stable [ ] /unstable [XXX ] Recommendations: Give Vancomycin 1000 mg q 36 hrs with an expected Cpeak of 36.9 mcg/ml and an expected Ctrough of 15.58 mcg/ml Renal dosing of other antibiotics (review renal dosing of other medications and list guidelines here): ZOSYN 2.25 Thank you for the consult, will continue to follow. Signature: Jennifer MANTILLA TROUGH 04/13/24 0930 Initialized on 04/10/24 10:58 - END OF NOTE 04/10/24 10:10 (created 04/10/24 11:06) Case Management Note by Cassie Burk S/W PATIENT AND DAUGHTER KENNA AT BEDSIDE- PATIENT CONTINUES TO DENY ANY NEW NEEDS AT TIME OF DC. PATIENT REPORTS HIS DAUGHTER OR SON CAN STAY WITH HIM AT DC IF NEEDED. HE CURRENTLY DECLINES ANY HHC. HE PLANS TO RETURN HOME TO HIS PLF AT TIME OF DC Initialized on 04/10/24 11:06 - END OF NOTE Assessment/Plan (1) Sepsis Current Visit: Yes Status: Acute (2) UTI (urinary tract infection) Current Visit: Yes Status: Acute Code(s): N39.0 - URINARY TRACT INFECTION, SITE NOT SPECIFIED (3) Fever Current Visit: Yes Status: Acute Qualifiers: Fever type: due to other condition Qualified Code(s): R50.81 - Fever presenting with conditions classified elsewhere Code(s): R50.9 - FEVER, UNSPECIFIED (4) Hypoxia Current Visit: Yes Status: Acute Code(s): R09.02 - HYPOXEMIA (5) Chronic renal insufficiency Current Visit: No Status: Chronic Code(s): N18.9 - CHRONIC KIDNEY DISEASE, UNSPECIFIED (6) Intracerebral hemorrhage Current Visit: No Status: Chronic Qualifiers: Intracerebral hemorrhage etiology: nontraumatic Cerebral hemorrhage location: cerebral hemisphere, cortical portion Laterality: right Qualified Code(s): I61.1 - Nontraumatic intracerebral hemorrhage in hemisphere, cortical Code(s): I61.9 - NONTRAUMATIC INTRACEREBRAL HEMORRHAGE, UNSPECIFIED (7) Hypothyroidism Current Visit: Yes Status: Chronic Code(s): E03.9 - HYPOTHYROIDISM, UNSPECIFIED (8) HTN (hypertension) Current Visit: Yes Status: Chronic Qualifiers: Hypertension type: primary hypertension Qualified Code(s): I10 - Essential (primary) hypertension Assessment & Plan: (1) Sepsis Current Visit: Yes Status: Acute Assessment & Plan: - Urosepsis - UC and BC x 2 pending - Temp > 100.4 - Resp > 20 - HR > 90 - Lactate 1.5- WNL - IVF gave in ER - IV antibiotic - Tylenol for fever 04/10 - UC gram + - BC x2- pending - Antibiotocs changed to Zosyn and vancomycin pharmacy to dose 04/11 - UC positive for staph- Antibiotic changed to Levaquin - UC gram positive ID sensitivity pending - temp 99 last night (2) UTI (urinary tract infection) Current Visit: Yes Status: Acute Assessment & Plan: - with hematuria - Levaquin gave in ER- start ceftriaxone tomorrow - UC pending - Pt has some recent urinary retention after CVA in the hospital and was cathed twice. - Pt feels dx is r/t this. - No prior hx of UTI's - Consider US if continued hematuria - CBC, CMP reviewed 04/10 - CBC, CMP reviewed - WBC 17.9 - UC gram + - BC x2- pending - Antibiotics changed to Zosyn and vancomycin pharmacy to dose - Fever yesterday evening and last night 04/11 - WBC 11.9 - UC positive for staph- Antibiotic changed to Levaquin PO - UC gram positive ID sensitivity pending- continue Vancomyicin - pharmacy dosing per renal function - temp 99 last night Code(s): N39.0 - URINARY TRACT INFECTION, SITE NOT SPECIFIED (3) Fever Current Visit: Yes Status: Acute Assessment & Plan: - Temp of 104.5 on admission- improving - trend - UC and BC x2 pending - IV antibiotic- Levaquin gave in ER- will start ceftriaxone IP tomorrow - Tylenol PRN- gave x1 in ER - 2:2 UTI 04/10 - Fever yesterday evening and last night 04/11 - fever 99 last night Code(s): R50.9 - FEVER, UNSPECIFIED (4) Hypoxia Current Visit: Yes Status: Acute Assessment & Plan: - CXR reviewed - on 2lNC - 99%- baseline RA - RT wean O2 keep sat > 92% - duonebs Q6 - Lasix IV x1- for residual pleural effusion Left side as seen on CXR - IV fluids stopped 04/10 - RA 94%- resolved Code(s): R09.02 - HYPOXEMIA (5) Chronic renal insufficiency Current Visit: No Status: Chronic Assessment & Plan: - at baseline renal function 04/10 - BERTRAND on CRF- Creat 1.66- baseline 1.37 - NS @ 50ml/hr 04/11 - Creat 1.81- worse - stopped lisinopril - Continue NS @ 50 ml/hr Code(s): N18.9 - CHRONIC KIDNEY DISEASE, UNSPECIFIED (6) Intracerebral hemorrhage Current Visit: No Status: Chronic Assessment & Plan: - Recent dx with d/c from [facility] yesterday - Finger tips on left hand numb post CVA - CT head today: Redemonstration of right insular region hemorrhage showing no interval change in size and morphology. Mild adjacent perilesional edema seen without midline shift. Follow-up is advised. No interval change since prior study, - Tele- Neurology consulted for further eval of CT head- may need possible MRI for further eval of mild adjacent perilesional edema - Discussed with tele- neurology and they recommend to hold ASA for 2 weeks post event and f/u with neurology to eval if this needs restarted. No other recs at this time. Code(s): I61.9 - NONTRAUMATIC INTRACEREBRAL HEMORRHAGE, UNSPECIFIED (7) Hypothyroidism Current Visit: Yes Status: Chronic Assessment & Plan: - continue synthroid Code(s): E03.9 - HYPOTHYROIDISM, UNSPECIFIED (8) HTN (hypertension) Current Visit: Yes Status: Chronic Assessment & Plan: - BP stable - Continue home meds VTE: SCD's PPI: Protonix Next of KIN: Daughter Code status: Full D/C plan: tomorrow Code(s): I10 - ESSENTIAL (PRIMARY) HYPERTENSION Code(s): I10 - ESSENTIAL (PRIMARY) HYPERTENSION
[2024-04-11] MEDS ORDERED: Levofloxacin 250MG Tablet PO SCH (10:00)
[2024-04-12 04:49] LABS: Hematocrit 28.8 % (40.1-51.0); Hemoglobin 9.2 g/dL (13.7-17.5); Mean Corpuscular Hgb Concent. 31.9 g/dL (32.3-36.5); Mean Platelet Volume 10.2 fL (9.4-12.4); Platelet Count 129 x10^3/uL (163-337); Red Blood Count 2.97 x10^6/uL (4.63-6.08); White Blood Count 8.6 x10^3/uL (4.23-9.07)
[2024-04-12 05:03] LABS: ALBUMIN 3.3 g/dL (3.5-5.0); ANION GAP 11.6 MEQ/L (5-15); BILIRUBIN,TOTAL 0.4 mg/dL (0.2-1.3); Calcium 8.8 mg/dL (8.4-10.2); Creatinine 1 1.52 mg/dL (0.66-1.25); EST GLOMERULAR FILTRATION RATE 44.1 ML/MIN; Total Protein 6.3 g/dL (6.3-8.2)
--- NOTE | 2024-04-12 07:30 | PCM.NOTE ---
Date and Time: 04/12/24724 Subjective Assessment: is a 88 year old male with PMHX of HTN, CABG, thyroid cancer, and recent stroke 03/27/24 and just release from the [facility] 04/08/24 where he was admitted for a right insular hemorrhagic stroke. Patient does have residual left finger tip numbness otherwise no other focal symptoms. He presented to our ED via EMS for evaluation of subjective fever, rigor, generalized weakness, dysuria, and hematuria. Patient reports he did have an in and out cath done twice while in [facility] for urinary retention. He did not go home with a cath and has been able to urinate fine except for hematuria. Patient uroseptic with leukocytosis/ urine and blood cultures positive x 1. Urine culture showing staphylococcus capitis and blood culture x 1 showing gram + ID with sensitivity pending.Current IP treatment with Vancomycin/levaquin. 2LNC placed on pt for comfort in ER. Pt does not wear oxygen at home. Objective Data Vital Signs: Vital Signs - 24 hr Temp Pulse Resp BP Pulse Ox 04/12/24 04:00 97.9 F 62 22 151/78 94 L 04/11/24 23:40 98.3 F 61 18 119/65 96 04/11/24 20:00 98.5 F 63 16 123/71 97 04/11/24 16:00 97.8 F 57 L 17 134/69 97 04/11/24 11:45 97.8 F 65 18 153/74 98 04/11/24 08:24 60 16 95 04/11/24 08:00 97.7 F 63 18 166/72 98 Pain Assessment - Last Documented Pain Intensity 0 Pain Scale Used 0-10 Pain Scale Intake and Output: Intake & Output 04/09/24 04/10/24 04/11/24 04/12/24 11:59 11:59 11:59 11:59 Intake Total 1763 2256 2015 Output Total 150 Balance 1763 2106 2015 Weight 67.4 kg 64.4 kg 64.4 kg Lab Results: Lab Results-Last 24 Hours 04/12/24 04/12/24 Range/Units 04:40 04:40 WBC 8.6 (4.23-9.07) x10^3/uL RBC 2.97 L (4.63-6.08) x10^6/uL Hgb 9.2 L (13.7-17.5) g/dL Hct 28.8 L (40.1-51.0) % MCV 97.0 H (79.0-92.2) fL MCH 31.0 (25.7-32.2) pg MCHC 31.9 L (32.3-36.5) g/dL RDW 14.0 (11.6-14.4) % Plt Count 129 L (163-337) x10^3/uL MPV 10.2 (9.4-12.4) fL Sodium 139 (135-145) mmol/L Potassium 4.0 (3.5-5.1) mmol/L Chloride 110 H (98-107) mmol/L Carbon Dioxide 21 L (22-30) mmol/L Anion Gap 11.6 (5-15) MEQ/L BUN 31 H (9-20) mg/dL Creatinine 1.52 H (0.66-1.25) mg/dL Estimated GFR 44.1 ML/MIN Glucose 98 (74-106) mg/dL Calcium 8.8 (8.4-10.2) mg/dL Total Bilirubin 0.40 (0.2-1.3) mg/dL AST 26 (17-59) U/L ALT 22 (0-50) U/L Alkaline Phosphatase 58 (38-126) U/L Serum Total Protein 6.3 (6.3-8.2) g/dL Albumin 3.3 L (3.5-5.0) g/dL Radiology Exams: Radiology Procedures Category Date Time Status ECHO W/2D AND DOPPLER [US] Routine Exams 04/12/24 08:00 Ordered Multi-Disciplinary Progress Notes: Multi-Disciplinary Progress Notes 04/11/24 12:35 Case Management Note by Cassie Burk PATIENT AMBULATING IN [facility] WITH ONLY SUPERVISION- DO NOT ANTICIPATE ANY NEEDS AT DC. PATIENT TO DC HOME TO HIS PLF WITH HIS DAUGHTER TO ASSIST HIM IF NEEDED Initialized on 04/11/24 12:35 - END OF NOTE Assessment/Plan (1) Sepsis Current Visit: Yes Status: Acute Assessment & Plan: - 2/2 to UTI with staphylococcus capitis -WBC reviewed with downtrending and now WNL at 8.6<11.9<17.9 - Bcult x 2 showing gram + ID - follow -Repeat Bcult pending - IVF provided in ED - lactic WNL - Antimicrobial history: -Zosyn 04/10 - 04/11 -Vancomycin 04/10/24- current -Levofloxacin 04/09-current - anti-emetic/anti-pyrectics -currently does not meet criteria with stable vitals/normal WBC (2) UTI (urinary tract infection) Current Visit: Yes Status: Acute Assessment & Plan: - UC with staphylococcus capitis -see plan in sepsis - Pt has some recent urinary retention after CVA in the hospital and was cathed twice. - Pt feels dx is r/t this. - No prior hx of UTI's - Consider US if continued hematuria - CBC, CMP reviewed -improving Code(s): N39.0 - URINARY TRACT INFECTION, SITE NOT SPECIFIED (3) Fever Current Visit: Yes Status: Acute Qualifiers: Fever type: due to other condition Qualified Code(s): R50.81 - Fever presenting with conditions classified elsewhere Assessment & Plan: -see spesis Code(s): R50.9 - FEVER, UNSPECIFIED (4) Hypoxia Current Visit: Yes Status: Acute Assessment & Plan: - CXR reviewed demonstrating early congestive or bronchitic changes, shows interval improvement since prior. likely mild residual pleural effusion or pleural thickening, this shows significant reduction since prior suggesting interval improvement. Previously seen right paratracheal opacity appreciated again, stable. - Documentation reviewed - Lasix IV x1 received for residual pleural effusion Left side as seen on CXR - IV fluids stopped 04/09/24 -Now on baseline RA Code(s): R09.02 - HYPOXEMIA (5) HTN (hypertension) Current Visit: Yes Status: Chronic Qualifiers: Hypertension type: primary hypertension Qualified Code(s): I10 - Essential (primary) hypertension Assessment & Plan: - BP stable - Continue home meds Code(s): I10 - ESSENTIAL (PRIMARY) HYPERTENSION (6) Hypothyroidism Current Visit: Yes Status: Chronic Assessment & Plan: - continue Synthroid Code(s): E03.9 - HYPOTHYROIDISM, UNSPECIFIED (7) Chronic renal insufficiency Current Visit: No Status: Chronic Assessment & Plan: - Creat reviewed at 1.52- baseline 1.37 - Avoid SHERRY/ARB/NSAIDS - hold lisinopril - Continue NS @ 50 ml/hr Code(s): N18.9 - CHRONIC KIDNEY DISEASE, UNSPECIFIED (8) Intracerebral hemorrhage Current Visit: No Status: Chronic Qualifiers: Intracerebral hemorrhage etiology: nontraumatic Cerebral hemorrhage location: cerebral hemisphere, cortical portion Laterality: right Qualified Code(s): I61.1 - Nontraumatic intracerebral hemorrhage in hemisphere, cortical Assessment & Plan: - Recent dx with d/c from [facility] - Residual left finger tips numbness s/p CVA - CT head reviewed noting redemonstration of right insular region hemorrhage showing no interval change in size and morphology. Mild adjacent perilesional edema seen without midline shift. No interval change since prior study, - Tele- Neurology consulted for further eval of CT head- may need possible MRI for further eval of mild adjacent perilesional edema - Reviewed documentation tele- neurology recommending to hold ASA for 2 weeks post event and f/u with neurology to eval if this needs restarted. No other recs at this time. Neurology OP to decide when to resume ASA VTE: SCD's PPI: Protonix Next of KIN: Daughter Code(s): I61.9 - NONTRAUMATIC INTRACEREBRAL HEMORRHAGE, UNSPECIFIED
[2024-04-12 12:41] VITALS: BP 152/73; PULSE 68; RESP 17; TEMP 97.8; O2SAT 97
--- NOTE | 2024-04-12 14:26 | PCM.DS ---
Discharge Summary Date of Admission: 04/09/24 11:35 Date of Discharge: 04/12/24 Admitting Physician: GEGE VOSS MD Consults: Consults on Case 04/09/24 11:59 Consult Neurology ROUTINE Primary Care Provider: PADMA CHAVEZ MD Allergies Allergies No Known Drug Allergies Allergy (Verified 04/09/24 07:52) Hospital Summary - Hospital Course Hospital Course: is a 88 year old male with PMHX of HTN, CABG, thyroid cancer, and recent stroke 03/27/24 and just release from the [facility] 04/08/24 where he was admitted for a right insular hemorrhagic stroke. Patient does have residual left finger tip numbness otherwise no other focal symptoms. He presented to our ED via EMS for evaluation of subjective fever, rigor, generalized weakness, dysuria, and hematuria. Patient reports he did have an in and out cath done twice while in [facility] for urinary retention. He did not go home with a cath and has been able to urinate fine except for hematuria. Patient uroseptic with leukocytosis/ urine and blood cultures positive x 1. Urine and blood culture showing staphylococcus capitis. IP treatment with Vancomycin/levaquin. 2LNC placed on pt for comfort in ER. Now on RA. Patient requesting discharge home today. Discussed elevated creat which patient states is chronic - however he do es not see nephrology. Lisinopril has been held due to BERTRAND. Will set pt up with nephrology as OP. Will send him home on levaquin - renally dosed by pharmacy at 750mg every other day for a total of 7 more days. Coreg has been increased for hypertension. Patient advised to keep a blood pressure/HR log and take to appt with nephrology/pcp for further management. Patient agreeable to plan and stable for discharge. He will need to continue to hold ASA until neurology clears him to restart it. I have notified patient of this and he has verbalized understanding. Discharge Note New Medications: Levaquin/ increase of coreg to 12.5BID/ discontinue lisinopril Follow Up: PCP/neurology/nephrology Results pending: Repeat blood cultures Latest Assessment & Plan (1) Sepsis Current Visit: Yes Status: Acute Assessment & Plan: - 2/2 to UTI blood and urine cultures with staphylococcus capitis -WBC reviewed with downtrending and now WNL at 8.6<11.9<17.9 --Repeat Bcult pending - IVF provided in ED - lactic WNL - Antimicrobial history: -Zosyn 04/10 - 04/11 -Vancomycin 04/10/24- current -Levofloxacin 04/09-current - anti-emetic/anti-pyrectics -currently does not meet criteria with stable vitals/normal WBC -levaquin PO renal dosing for discharge (2) UTI (urinary tract infection) Current Visit: Yes Status: Acute Assessment & Plan: - UC with staphylococcus capitis -see plan in sepsis - Pt has some recent urinary retention after CVA in the hospital and was cathed twice. - Pt feels dx is r/t this. - No prior hx of UTI's - Consider US if continued hematuria - CBC, CMP reviewed -improving Code(s): N39.0 - URINARY TRACT INFECTION, SITE NOT SPECIFIED (3) Fever Current Visit: Yes Status: Acute Qualifiers: Fever type: due to other condition Qualified Code(s): R50.81 - Fever presenting with conditions classified elsewhere Assessment & Plan: -see spesis Code(s): R50.9 - FEVER, UNSPECIFIED (4) Hypoxia Current Visit: Yes Status: Acute Assessment & Plan: - CXR reviewed demonstrating early congestive or bronchitic changes, shows interval improvement since prior. likely mild residual pleural effusion or pleural thickening, this shows significant reduction since prior suggesting interval improvement. Previously seen right paratracheal opacity appreciated again, stable. - Documentation reviewed - Lasix IV x1 received for residual pleural effusion Left side as seen on CXR - IV fluids stopped 04/09/24 -Now on baseline RA Code(s): R09.02 - HYPOXEMIA (5) HTN (hypertension) Current Visit: Yes Status: Chronic Qualifiers: Hypertension type: primary hypertension Qualified Code(s): I10 - Essential (primary) hypertension Assessment & Plan: - BP stable - Continue home meds Code(s): I10 - ESSENTIAL (PRIMARY) HYPERTENSION (6) Hypothyroidism Current Visit: Yes Status: Chronic Assessment & Plan: - continue Synthroid Code(s): E03.9 - HYPOTHYROIDISM, UNSPECIFIED (7) Chronic renal insufficiency Current Visit: No Status: Chronic Assessment & Plan: - Creat reviewed at 1.52- baseline 1.37 - Avoid SHERRY/ARB/NSAIDS - hold lisinopril - Continue NS @ 50 ml/hr Code(s): N18.9 - CHRONIC KIDNEY DISEASE, UNSPECIFIED (8) Intracerebral hemorrhage Current Visit: No Status: Chronic Qualifiers: Intracerebral hemorrhage etiology: nontraumatic Cerebral hemorrhage location: cerebral hemisphere, cortical portion Laterality: right Qualified Code(s): I61.1 - Nontraumatic intracerebral hemorrhage in hemisphere, cortical Assessment & Plan: - Recent dx with d/c from [facility] - Residual left finger tips numbness s/p CVA - CT head reviewed noting redemonstration of right insular region hemorrhage showing no interval change in size and morphology. Mild adjacent perilesional edema seen without midline shift. No interval change since prior study, - Tele- Neurology consulted for further eval of CT head- may need possible MRI for further eval of mild adjacent perilesional edema - Reviewed documentation tele- neurology recommending to hold ASA for 2 weeks post event and f/u with neurology to eval if this needs restarted. No other recs at this time. Neurology OP to decide when to resume ASA I spent 35 minutes [id number] with the patient on the day of discharge performing discharge exam, discussing hospital stay and discharge instructions with patient and caregivers, preparation of discharge records, prescriptions & referral forms and addressing any questions/concerns the patient had as do cumented above. - Vitals & Intake/Output Vital Signs: Vital Signs Temperature 97.8 F 04/12/24 12:00 Pulse Rate 68 04/12/24 12:00 Respiratory Rate 17 04/12/24 12:00 Blood Pressure 152/73 04/12/24 12:00 O2 Sat by Pulse Oximetry 97 04/12/24 12:00 Intake & Output: Intake & Output 04/10/24 04/11/24 04/12/24 04/13/24 11:59 11:59 11:59 11:59 Intake Total 1763 2256 2376 240 Output Total 150 Balance 1763 2106 2376 240 Weight 64.4 kg 64.4 kg - Lab Result Diagrams: 04/12/24 04:40 04/12/24 04:40 Lab Results-Last 24 Hrs: Lab Results-Last 24 Hours 04/12/24 04/12/24 Range/Units 04:40 04:40 WBC 8.6 (4.23-9.07) x10^3/uL RBC 2.97 L (4.63-6.08) x10^6/uL Hgb 9.2 L (13.7-17.5) g/dL Hct 28.8 L (40.1-51.0) % MCV 97.0 H (79.0-92.2) fL MCH 31.0 (25.7-32.2) pg MCHC 31.9 L (32.3-36.5) g/dL RDW 14.0 (11.6-14.4) % Plt Count 129 L (163-337) x10^3/uL MPV 10.2 (9.4-12.4) fL Sodium 139 (135-145) mmol/L Potassium 4.0 (3.5-5.1) mmol/L Chloride 110 H (98-107) mmol/L Carbon Dioxide 21 L (22-30) mmol/L Anion Gap 11.6 (5-15) MEQ/L BUN 31 H (9-20) mg/dL Creatinine 1.52 H (0.66-1.25) mg/dL Estimated GFR 44.1 ML/MIN Glucose 98 (74-106) mg/dL Calcium 8.8 (8.4-10.2) mg/dL Total Bilirubin 0.40 (0.2-1.3) mg/dL AST 26 (17-59) U/L ALT 22 (0-50) U/L Alkaline Phosphatase 58 (38-126) U/L Serum Total Protein 6.3 (6.3-8.2) g/dL Albumin 3.3 L (3.5-5.0) g/dL Micro Results-Entire Visit: Microbiology 04/09/24 08:16 Blood Culture Gram Stain - Final Blood Blood Culture - Final Staphylococcus Capitis 04/09/24 08:09 Blood Culture Gram Stain - Final Blood Blood Culture - Final Staphylococcus Capitis 04/09/24 09:19 Urine Culture - Final Catherized Staphylococcus Capitis - Radiology Exams Ordered Rad Exams-Entire Visit: Radiology Procedures Category Date Time Status ECHO W/2D AND DOPPLER [US] Routine Exams 04/12/24 08:00 Taken - Procedures and Test Procedures and Tests throughout Hospitalization: Therapy Orders & Screens 04/09/24 11:57 RT Miscellaneous Order ROUTINE Comment: Physician Instructions: Reason For Exam: wean O2 keep sat > 92% Diagnosis: Fever, UTI 04/09/24 14:30 Respiratory Therapy Assessment DAILY Comment: Diagnosis: UTI Discharge Exam General Appearance: no apparent distress Neurologic Exam: alert, oriented x 3, cooperative Eye Exam: PERRL Ears, Nose, Throat Exam: normal ENT inspection Neck Exam: normal inspection Respiratory Exam: normal breath sounds, lungs clear Cardiovascular Exam: regular rate/rhythm, normal heart sounds Gastrointestinal/Abdomen Exam: soft, normal bowel sounds Male Genitalia Exam: deferred Rectal Exam: deferred Back Exam: normal inspection Extremity Exam: normal inspection Skin Exam: normal color Final Diagnosis/Problem List - Final Discharge Diagnosis/Problem (1) Sepsis Current Visit: Yes Status: Resolved (2) UTI (urinary tract infection) Current Visit: Yes Status: Acute Code(s): N39.0 - URINARY TRACT INFECTION, SITE NOT SPECIFIED (3) Fever Current Visit: Yes Status: Resolved Code(s): R50.9 - FEVER, UNSPECIFIED (4) Hypoxia Current Visit: Yes Status: Resolved Code(s): R09.02 - HYPOXEMIA (5) HTN (hypertension) Current Visit: Yes Status: Chronic Code(s): I10 - ESSENTIAL (PRIMARY) HYPERTENSION (6) Hypothyroidism Current Visit: Yes Status: Chronic Code(s): E03.9 - HYPOTHYROIDISM, UNSPECIFIED (7) Chronic renal insufficiency Current Visit: No Status: Chronic Code(s): N18.9 - CHRONIC KIDNEY DISEASE, UNSPECIFIED (8) Intracerebral hemorrhage Current Visit: No Status: Chronic Code(s): I61.9 - NONTRAUMATIC INTRACEREBRAL HEMORRHAGE, UNSPECIFIED - Discharge Disposition: Home, Self-Care Condition: Stable Prescriptions: New Carvedilol 12.5 mg [Coreg 12.5 mg] 12.5 mg PO BID 30 Days #60 tablet levoFLOXacin [Levofloxacin] See Rx Instructions .ROUTE .COMPLEX 7 Days #7 tablet Continue Pravastatin Sodium 40 mg PO QHS Levothyroxine Sodium 125 mcg PO 0700 Amlodipine Besylate [Norvasc] 10 mg PO DAILY Tamsulosin HCl 0.4 mg [Flomax 0.4 MG] 0.4 mg PO DAILY Discontinued Aspirin EC 81 mg [Ecotrin 81 mg] 81 mg PO DAILY carvediloL [Coreg] 6.25 mg PO BID lisinopriL [Zestril] 40 mg PO DAILY Instructions: Sepsis in adults - Discharge instructions Additional Instructions: NO FOLLOW-UP APPOINTMENT CAN BE SCHEDULED ON 04/18 PER FAMILY AND TRY TO GET FOLLOW-UP APPOINTMENTS FOR AFTER 10AM. Keep blood pressure log until follow up with PCP/nephrology -Continue to hold lisinopril and Aspirin until neurology/nephrology restarts Follow up with: MAURICIO HOLLAND MD [CONSULTING PHYSICIAN] - 04/26/24 1:10 pm ([facility]) SUSAN KOHLI NP [NON-STAFF PHY W/O PRIVILEGES] - 04/19/24 10:00 am VANESSA ESPITIA MD [NON-STAFF PHY W/O PRIVILEGES] - 08/05/24 9:45 am Forms: Discharge Instructions
[2024-04-13] MEDS ORDERED: TROUGH DRUG LEVELS IJ ONE (09:30)
== END 2024-04-12 16:04 | disposition home or self-care (01) | DRG 871 ==
LOC: ED 07:43 → MED SURG 11:35 → OBSVTOIN 11:35
PROVIDERS: ADMIT Internal Medicine; ATTEND Internal Medicine
DX: A41.9 Sepsis, unspecified organism (principal); I61.1 Nontraumatic intracerebral hemorrhage in hemisphere, cortical; N39.0 Urinary tract infection, site not specified; R50.81 Fever presenting with conditions classified elsewhere; R09.02 Hypoxemia; E03.9 Hypothyroidism, unspecified; I12.9 Hypertensive chronic kidney disease with stage 1 through stage 4 chronic kidney disease, or unspecified chronic kidney disease; N18.9 Chronic kidney disease, unspecified; R31.9 Hematuria, unspecified; Z85.850 Personal history of malignant neoplasm of thyroid; Z86.73 Personal history of transient ischemic attack (TIA), and cerebral infarction without residual deficits; Z95.0 Presence of cardiac pacemaker; Z79.899 Other long term (current) drug therapy
CPT/HCPCS: 0241U; 36415; 70450; 71045; 80053; 81001; 83605; 83735; 83880; 84443; 85025; 85027; 87040; 87077; 87086; 87186; 93005; 93041; 93306; 94760; 96365; 99285; Q3014; J1956; J2543; A9270-GY; J3370

== ENCOUNTER 2024-07-03 11:56 | Emergency (ER) | payer MEDICARE ==
--- NOTE | 2024-07-03 12:04 | ERPHSYRPT ---
- History of Present Illness Time Seen by Provider: 07/03/24 12:04 Source: patient, family Exam Limitations: no limitations Physician History: This is an 88-year-old white male patient who arrives by private vehicle accompanied by family members and presents to the emergency department with complaint of intermittent dizziness over the last several days. What concerned him today was his blood pressure readings were much higher than usual. It persisted for another 1 or 2 readings. He did not take his carvedilol this morning. This medicine does make him dizzy and he thought his symptoms of lightheadedness would worsen. He denies shortness of breath he denies chest pain. He did experience a head bleed back in March 2024. Patient does have a history of coronary artery disease (CABG), hypothyroidism, hyperlipidemia. He has no abdominal pain. He has no nausea vomiting or diarrhea symptoms. He denies headache and he denies visual changes. 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 Menendez of and the custodial supervisor Jose (younger) Timing/Duration: intermittent (Over the last several days), worse (Today) Severity: moderate Associated Symptoms: other, No abdominal pain, No shortness of breath (Lightheadedness), No chest pain, No headaches Allergies/Adverse Reactions: No Known Drug Allergies Allergy (Verified 04/09/24 07:52) Home Medications: Pravastatin Sodium 40 mg PO QHS 06/27/19 [History] Levothyroxine Sodium 125 mcg PO 0700 04/02/24 [History] Tamsulosin HCl 0.4 mg [Flomax 0.4 MG] 0.4 mg PO DAILY 04/09/24 [History] Lisinopril 10 mg [Zestril 10 MG] 10 mg PO DAILY 07/03/24 [History] Hx Tetanus, Diphtheria Vaccination/Date Given: Yes Hx Influenza Vaccination/Date Given: Yes (2013) Hx Pneumococcal Vaccination/Date Given: No Travel Risk - International Travel Have you traveled outside of the country in past 3 weeks: No - Emerging Infectious Disease Are you exhibiting symptoms associated with any current EIDs: No - Review of Systems Constitutional: Other (Light headednessnow resolved) Eyes: No Symptoms Ears, Nose, & Throat: No Symptoms Respiratory: No Symptoms Cardiac: No Symptoms Abdominal/Gastrointestinal: No Symptoms Genitourinary Symptoms: No Symptoms Musculoskeletal: No Symptoms Skin: No Symptoms Neurological: Dizziness (Resolved) Psychological: No Symptoms Endocrine: No Symptoms Hematologic/Lymphatic: No Symptoms Immunological/Allergic: No Symptoms All Other Systems: Reviewed and Negative - Past Medical History Pertinent Past Medical History: Yes Neurological History: No Pertinent History ENT History: No Pertinent History Cardiac History: No Pertinent History, Hypertension, Other Respiratory History: No Pertinent History Endocrine Medical History: Thyroid Cancer Musculoskeletal History: No Pertinent History GI Medical History: Hernia History: No Pertinent History Psycho-Social History: No Pertinent History Male Reproductive Disorders: No Pertinent History Other Medical History: head bleed 03/2024, 4 x bypass and valve repair - Past Surgical History Past Surgical History: Yes Neuro Surgical History: No Pertinent History Cardiac: CABG, Valve Replacement Respiratory: No Pertinent History Gastrointestinal: Hernia Repair Genitourinary: No Pertinent History Musculoskeletal: No Pertinent History Male Surgical History: No Pertinent History - Social History Smoking Status: Never smoker Exposure to second hand smoke: No Drug Use: none - Social Determinants of Health Will the patient participate in the screening: Declined to provide - Nursing Vital Signs Nursing Vital Signs: Initial Vital Signs Temperature 98.3 F 07/03/24 12:02 Pulse Rate 62 07/03/24 12:02 Respiratory Rate 20 07/03/24 12:02 Blood Pressure 242/107 07/03/24 12:02 O2 Sat by Pulse Oximetry 98 07/03/24 12:02 Pain Scale Pain Intensity 0 - Physical Exam General Appearance: no apparent distress, alert, anxiety, thin Eye Exam: PERRL/EOMI, eyes nml inspection Ears, Nose, Throat Exam: normal ENT inspection, moist mucous membranes Neck Exam: normal inspection, non-tender, supple, full range of motion Respiratory Exam: normal breath sounds, lungs clear, airway intact, No chest tenderness, No respiratory distress Cardiovascular Exam: regular rate/rhythm, normal heart sounds, normal peripheral pulses Gastrointestinal/Abdomen Exam: soft, normal bowel sounds, No tenderness Rectal Exam: not done Back Exam: normal inspection, normal range of motion, No CVA tenderness, No vertebral tenderness Extremity Exam: normal inspection, normal range of motion, pelvis stable Neurologic Exam: alert, oriented x 3, cooperative, normal mood/affect, nml cerebellar function, nml station & gait, sensation nml Skin Exam: normal color, warm, dry Lymphatic Exam: No adenopathy SpO2 Interpretation: normal O2 Delivery: Room Air - Course Nursing assessment & vital signs reviewed: Yes EKG Interpreted by Me: RATE (59), NORMAL AXIS, NORMAL INTERVALS, Left Bundle Branch Block (Incomplete), Other (LVH with presence of anterior Q waves, possibly due to LVH. QTc is 445. No acute ischemia on today's twelve-lead EKG. Comparison 04/02/2024 shows LVH present.) Ordered Tests: Active Orders 24 hr Category Date Time Status EKG-ER Only STAT Care 07/03/24 12:30 Active IV Insertion STAT Care 07/03/24 12:30 Active Pulse Oximetry (ED) STAT Care 07/03/24 12:30 Active HEAD WITHOUT CONTRAST [CT] Stat Exams 07/03/24 12:31 Completed CBC W DIFF Stat Lab 07/03/24 12:30 Completed CMP Stat Lab 07/03/24 12:30 Completed MAGNESIUM Stat Lab 07/03/24 12:30 Completed TROPONIN Q4H Lab 07/03/24 12:30 Completed TROPONIN Q4H Lab 07/03/24 16:30 Ordered TROPONIN Q4H Lab 07/03/24 20:30 Ordered TSH [TSH, 3RD Generation] Stat Lab 07/03/24 12:30 Completed UA W/RFX UR CULTURE Stat Lab 07/03/24 14:17 Completed Medication Summary Discontinued Medications Generic Name Dose Route Start Last Admin Trade Name Freq PRN Reason Stop Dose Admin Hydralazine HCl 5 mg 07/03/24 12:19 07/03/24 12:25 Hydralazine Hcl 20 Mg/Ml Vial IV 07/03/24 12:20 5 mg STAT ONE Administration Hydralazine HCl Confirm 07/03/24 12:22 Hydralazine Hcl 20 Mg/Ml Vial Administered 07/03/24 12:23 Dose 20 mg .ROUTE .STK-MED ONE Hydralazine HCl 5 mg 07/03/24 12:45 07/03/24 12:47 Hydralazine Hcl 20 Mg/Ml Vial IV 07/03/24 12:46 5 mg STAT ONE Administration Hydralazine HCl Confirm 07/03/24 12:47 Hydralazine Hcl 20 Mg/Ml Vial Administered 07/03/24 12:48 Dose 20 mg .ROUTE .STK-MED ONE Hydralazine HCl 5 mg 07/03/24 13:39 07/03/24 13:51 Hydralazine Hcl 20 Mg/Ml Vial IV 07/03/24 13:40 5 mg STAT ONE Administration Hydralazine HCl Confirm 07/03/24 13:49 Hydralazine Hcl 20 Mg/Ml Vial Administered 07/03/24 13:50 Dose 20 mg .ROUTE .K-MED ONE Lab/Rad Data: Laboratory Result Diagrams 07/03/24 12:30 07/03/24 12:30 Laboratory Results 07/03/24 07/03/24 07/03/24 Range/Units 14:17 12:30 12:30 WBC (4.23-9.07) x10^3/uL RBC (4.63-6.08) x10^6/uL Hgb (13.7-17.5) g/dL Hct (40.1-51.0) % MCV (79.0-92.2) fL MCH (25.7-32.2) pg MCHC (32.3-36.5) g/dL RDW (11.6-14.4) % Plt Count (163-337) x10^3/uL MPV (9.4-12.4) fL Gran % (34.0-67.9) % Immature Gran % (Auto) (0.001-0.429) % Nucleat RBC Rel Count (0.00-0.2) % Eos # (Auto) (0.04-0.54) x10^3/uL Immature Gran # (Auto) (0.001-0.031) x10^3u/L Absolute Lymphs (auto) (1.32-3.57) x10^3/uL Absolute Monos (auto) (0.30-0.82) x10^3/uL Absolute Nucleated RBC (0.00-0.012) x10^3u/L Lymphocytes % (21.8-53.1) % Monocytes % (5.3-12.2) % Eosinophils % (0.8-7.0) % Basophils % (0.2-1.2) % Absolute Granulocytes (1.78-5.38) x10^3/uL Basophils # (0.01-0.08) x10^3/uL Sodium (135-145) mmol/L Potassium (3.5-5.1) mmol/L Chloride (98-107) mmol/L Carbon Dioxide (22-30) mmol/L Anion Gap (5-15) MEQ/L BUN (9-20) mg/dL Creatinine (0.66-1.25) mg/dL Estimated GFR ML/MIN Glucose (74-106) mg/dL Calcium (8.4-10.2) mg/dL Magnesium (1.6-2.3) mg/dL Total Bilirubin (0.2-1.3) mg/dL AST (17-59) U/L ALT (0-50) U/L Alkaline Phosphatase (38-126) U/L Troponin I (0.000-0.033) ng/mL Serum Total Protein (6.3-8.2) g/dL Albumin (3.5-5.0) g/dL Free T4 1.60 (0.78-2.19) ng/dL TSH 3rd Generation 0.138 L (0.470-4.680) mIU/L Urine Color Yellow (Yellow) Urine Appearance Clear (Clear) Urine pH 6.5 (4.6-8.0) Ur Specific [place] 1.010 (1.005-1.030) Urine Protein 30 (Negative) Urine Glucose (UA) Negative (Negative) mg/dL Urine Ketones Trace A (Negative) Urine Blood Negative (Negative) Urine Nitrite Negative (Negative) Urine Bilirubin Negative (Negative) Urine Urobilinogen 0.2 (0.2) mg/dL Ur Leukocyte Esterase Negative (Negative) U Hyaline Cast (Auto) NONE SEEN (0-2) /LPF Urine Microscopic RBC 0-2 (0-5) /HPF Urine Microscopic WBC 0-2 (0-5) /HPF Ur Epithelial Cells None Seen (None Seen) /HPF Urine Bacteria None Seen (None Seen) /HPF Urine Culture Reflexed NO (NO) 07/03/24 07/03/24 Range/Units 12:30 12:30 WBC 5.8 (4.23-9.07) x10^3/uL RBC 3.50 L (4.63-6.08) x10^6/uL Hgb 11.0 L (13.7-17.5) g/dL Hct 33.1 L (40.1-51.0) % MCV 94.6 H (79.0-92.2) fL MCH 31.4 (25.7-32.2) pg MCHC 33.2 (32.3-36.5) g/dL RDW 13.5 (11.6-14.4) % Plt Count 139 L (163-337) x10^3/uL MPV 10.6 (9.4-12.4) fL Gran % 62.7 (34.0-67.9) % Immature Gran % (Auto) 0.3 (0.001-0.429) % Nucleat RBC Rel Count 0.0 (0.00-0.2) % Eos # (Auto) 0.17 (0.04-0.54) x10^3/uL Immature Gran # (Auto) 0.02 (0.001-0.031) x10^3u/L Absolute Lymphs (auto) 1.28 L (1.32-3.57) x10^3/uL Absolute Monos (auto) 0.65 (0.30-0.82) x10^3/uL Absolute Nucleated RBC 0.00 (0.00-0.012) x10^3u/L Lymphocytes % 22.0 (21.8-53.1) % Monocytes % 11.2 (5.3-12.2) % Eosinophils % 2.9 (0.8-7.0) % Basophils % 0.9 (0.2-1.2) % Absolute Granulocytes 3.65 (1.78-5.38) x10^3/uL Basophils # 0.05 (0.01-0.08) x10^3/uL Sodium 140 (135-145) mmol/L Potassium 4.1 (3.5-5.1) mmol/L Chloride 104 (98-107) mmol/L Carbon Dioxide 25 (22-30) mmol/L Anion Gap 14.7 (5-15) MEQ/L BUN 31 H (9-20) mg/dL Creatinine 1.32 H (0.66-1.25) mg/dL Estimated GFR 52.2 ML/MIN Glucose 94 (74-106) mg/dL Calcium 9.4 (8.4-10.2) mg/dL Magnesium 1.9 (1.6-2.3) mg/dL Total Bilirubin 0.80 (0.2-1.3) mg/dL AST 26 (17-59) U/L ALT 18 (0-50) U/L Alkaline Phosphatase 70 (38-126) U/L Troponin I < 0.012 (0.000-0.033) ng/mL Serum Total Protein 7.2 (6.3-8.2) g/dL Albumin 4.4 (3.5-5.0) g/dL Free T4 (0.78-2.19) ng/dL TSH 3rd Generation (0.470-4.680) mIU/L Urine Color (Yellow) Urine Appearance (Clear) Urine pH (4.6-8.0) Ur Specific [place] (1.005-1.030) Urine Protein (Negative) Urine Glucose (UA) (Negative) mg/dL Urine Ketones (Negative) Urine Blood (Negative) Urine Nitrite (Negative) Urine Bilirubin (Negative) Urine Urobilinogen (0.2) mg/dL Ur Leukocyte Esterase (Negative) U Hyaline Cast (Auto) (0-2) /LPF Urine Microscopic RBC (0-5) /HPF Urine Microscopic WBC (0-5) /HPF Ur Epithelial Cells (None Seen) /HPF Urine Bacteria (None Seen) /HPF Urine Culture Reflexed (NO) - Progress Progress: improved, re-examined Progress Note: 07/03/24 12:28 My medical decision making of the assignment of at least moderate complexity to this patient's medical issue today is based on review of the patient's past medical history, review the patient's medication list, reviewed patient drug allergy list, history present illness and physical findings on examination. The workup in this patient includes placement of a intravenous line, infusion of hydralazine (patient's heart rate is low normal range), twelve-lead EKG, CBC, CMP, magnesium level, TSH, free T4, troponin level, urinalysis and CT scan of the head without contrast. Differential diagnosis includes but is not limited to acute intracranial abnormality, hypertension secondary to ineffective medication, hypertension secondary to noncompliance, hypertension secondary to worsening renal function 07/03/24 14:19 I interpreted the patient's laboratory data results. The laboratory data results do not show any acute, emergent medical issues. The CT scan of the head without contrast was interpreted by the radiologist and I reviewed the impression. 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 There was an incidental finding of paranasal sinus disease. The systolic blood pressure has dropped from 224 down to 192 based on the last reading. The most recent mean arterial blood pressure is now 120. The patient no longer has dizziness or lightheadedness. The plan is to wait for the urinalysis. Will treat any infection that is present. If this is negative for any acute or emergent medical issue we will send the patient home with instructions for him to take his afternoon blood pressure medication as prescribed and for him to call his prescribing provider today to arrange a follow-up appointment. Per patient and patient family, the patient does have a follow-up appointment arranged for next Monday (6 days from now). 07/03/24 14:22 Counseled pt/family regarding: lab results, diagnosis - Departure Departure Disposition: Home Clinical Impression: Hypertension, Light-headed feeling Condition: Stable Critical Care Time: Yes Critical Care Time(excluding separately billable procedures): Critical 30-74 mins (45) Referrals: [facility] [Primary Care Provider] - Follow up/PCP as directed
[2024-07-03 12:09] VITALS: TEMP 98.3
[2024-07-03] MEDS ORDERED: APRESOLINE 20 MG/ML INJ ONE ×3 (12:22→13:49)
[2024-07-03] MEDS: APRESOLINE 20 MG/ML INJ IV ONE ×3 (12:25→13:51)
[2024-07-03 12:44] LABS: Absolute Neutrophil Ct (ANC) 3.65 x10^3/uL (1.78-5.38); BASOPHIL % 0.9 % (0.2-1.2); Basophil (Absolute #) 0.05 x10^3/uL (0.01-0.08); Eosinophil % 2.9 % (0.8-7.0); Eosinophil (Absolute #) 0.17 x10^3/uL (0.04-0.54); Hematocrit 33.1 % (40.1-51.0); IMMATURE GRAN # 0.02 x10^3u/L (0.001-0.031); IMMATURE GRAN % 0.3 % (0.001-0.429); Lymphocyte (Absolute #) 1.28 x10^3/uL (1.32-3.57); Mean Cell Volume 94.6 fL (79.0-92.2); Mean Corpuscular Hemoglobin 31.4 pg (25.7-32.2); Mean Corpuscular Hgb Concent. 33.2 g/dL (32.3-36.5); Mean Platelet Volume 10.6 fL (9.4-12.4); Monocyte (Absolute #) 0.65 x10^3/uL (0.30-0.82); Monocytes % 11.2 % (5.3-12.2); Neutrophil % 62.7 % (34.0-67.9); Platelet Count 139 x10^3/uL (163-337); Red Cell Distribution Width 13.5 % (11.6-14.4); White Blood Count 5.8 x10^3/uL (4.23-9.07)
[2024-07-03 13:07] LABS: ALBUMIN 4.4 g/dL (3.5-5.0); ALKALINE PHOSPHATASE 70 U/L (38-126); ANION GAP 14.7 MEQ/L (5-15); BLOOD UREA NITROGEN 31 mg/dL (9-20); CHLORIDE 104 mmol/L (98-107); Calcium 9.4 mg/dL (8.4-10.2); Carbon Dioxide 25 mmol/L (22-30); Creatinine 1 1.32 mg/dL (0.66-1.25); EST GLOMERULAR FILTRATION RATE 52.2 ML/MIN; Glucose 94 mg/dL (74-106); MAGNESIUM 1.9 mg/dL (1.6-2.3); Potassium 4.1 mmol/L (3.5-5.1); SGOT/AST 26 U/L (17-59); SGPT/ALT 18 U/L (0-50); SODIUM 140 mmol/L (135-145); TROPONIN < 0.012 ng/mL (0.000-0.033); Total Protein 7.2 g/dL (6.3-8.2)
[2024-07-03 13:20] VITALS: O2SAT 98
--- NOTE | 2024-07-03 14:07 | XRAY ---
Indication: Dizziness. Hypertension. Multiple contiguous axial images obtained through the head without contrast. Comparison: April 09, 2024 Previous small right cerebral parenchymal hemorrhage has resolved. Again age-appropriate global atrophy, moderate periventricular degenerative micro-ischemia bilaterally, and remote lacunar infarct left basal ganglia. No acute intracranial hemorrhage, abnormal extra-axial fluid collection, or mass effect. Fourth ventricle is midline without hydrocephalus. Bony calvarium intact. Again mild mucosal thickening both ethmoid/left frontal sinuses and complete opacification left maxillary sinus. Mastoid air cells are clear. 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 Again incidental paranasal sinus disease.
[2024-07-03 14:24] LABS: Appearance Clear (Clear); Bacteria None Seen /HPF (None Seen); Bilirubin Negative (Negative); Blood Negative (Negative); Epithelial Cells None Seen /HPF (None Seen); Glucose, Urine Negative (Negative); Hyaline Casts NONE SEEN /LPF (0-2); Ketones Trace (Negative); Leukocyte Esterase Negative (Negative); Nitrite Negative (Negative); Ph 6.5 (4.6-8.0); Protein,Urine Dip 30 (Negative); RBC 0-2 /HPF (0-5); Urobilinogen 0.2 mg/dL (0.2); WBC 0-2 /HPF (0-5)
[2024-07-03 14:34] VITALS: BP 182/89; PULSE 67; RESP 15
== END 2024-07-03 14:49 | disposition home or self-care (01) ==
LOC: ED 11:56
DX: I10 Essential (primary) hypertension (principal); R42 Dizziness and giddiness; E78.5 Hyperlipidemia, unspecified; Z79.899 Other long term (current) drug therapy
CPT/HCPCS: 36415; 70450; 80053; 81001; 83735; 84439; 84443; 84484; 85025; 93005; 94760; 96374; 96376; 99284; 99291; J0360